=== PATIENT | female | born 1990 | race Two or more races ===

== ENCOUNTER 2016-02-21 16:58 | Emergency (ER) | payer SELFPAY ==
--- NOTE | 2016-02-21 17:34 | ER Document Report ---
ED Medical Screen (RME) - General Chief Complaint: Dizziness Stated Complaint: BREATHING AND FAINTING CONCERNS Time seen by provider: 17:31 Mode of Arrival: Ambulatory Information source: Patient Notes: 25 yo female presents to ed for dizziness, nausea, short of breath, headache, no appetite for 3 days. 8 weeks due date september 23 TRAVEL OUTSIDE OF THE [place] IN LAST 30 DAYS: No - HPI Onset: Other - 2-3 days Onset/Duration: Gradual Quality of pain: Achy Severity: Moderate Pain Level: 3 Associated Symptoms: Dizzy/lightheaded, Headache, Nausea Exacerbated by: Denies Relieved by: Denies Similar symptoms previously: Yes Recently seen / treated by doctor: Yes - Related Data Smoking: Non-smoker, Quit greater than 1 year Frequency of alcohol use: None Drug Abuse: None Allergies/Adverse Reactions: No Known Allergies Allergy (Unverified 03/13/11 20:13) Past Medical History - Immunizations Hx Diphtheria, Pertussis, Tetanus Vaccination: No - unsure Physical Exam - Vital signs Vitals: Temp Pulse Resp BP Pulse Ox 97.9 F 68 16 103/55 L 98 02/21/16 17:16 02/21/16 17:16 02/21/16 17:16 02/21/16 17:16 02/21/16 17:16 Course - Vital Signs Vital signs: Temp Pulse Resp BP Pulse Ox 97.9 F 68 16 103/55 L 98 02/21/16 17:16 02/21/16 17:16 02/21/16 17:16 02/21/16 17:16 02/21/16 17:16
[2016-02-21 17:50] LABS: ABSOLUTE LYMPHOCYTES (AUTO) 1.7 10^3/uL (0.5-4.7); ABSOLUTE MONOCYTES (AUTO) 0.4 10^3/uL (0.1-1.4); ABSOLUTE NEUT (AUTO) 6.2 10^3/uL (1.7-8.2); BASOPHILS % (AUTO) 0.3 % (0-2); EOSINOPHILS % (AUTO) 0.6 % (0-6); HEMATOCRIT 38.1 % (36.0-47.0); HEMOGLOBIN 13.2 g/dL (12.0-15.5); HGB HCT DIFFERENCE 1.5; LYMPHOCYTES % (AUTO) 20.6 % (13-45); MEAN CORPUSCULAR HEMOGLOBIN 29.2 pg (27.0-33.4); MEAN CORPUSCULAR HGB CONC 34.8 g/dL (32.0-36.0); MEAN CORPUSCULAR VOLUME 84 fl (80-97); MONOCYTES % (AUTO) 5.1 % (3-13); RED BLOOD COUNT 4.54 10^6/uL (3.72-5.28); RED CELL DISTRIBUTION WIDTH 13.4 % (11.5-14.0); SEGMENTED NEUTROPHILS % (AUTO) 73.4 % (42-78); WHITE BLOOD COUNT 8.4 10^3/uL (4.0-10.5)
[2016-02-21 18:09] LABS: ALANINE AMINOTRANSFERASE 41 U/L (9-52); ALBUMIN 3.7 g/dL (3.5-5.0); ALKALINE PHOSPHATASE 75 U/L (38-126); ANION GAP 11 (5-19); ASPARTATE AMINO TRANSFERASE 23 U/L (14-36); BILIRUBIN,TOTAL 0.4 mg/dL (0.2-1.3); BLOOD UREA NITROGEN 6 mg/dL (7-20); CALCIUM 9.1 mg/dL (8.4-10.2); CARBON DIOXIDE 25 mmol/L (22-30); CHLORIDE 103 mmol/L (98-107); CREATININE RESULT 0.59 mg/dL (0.52-1.25); GLUCOSE 74 mg/dL (75-110); POTASSIUM 4.2 mmol/L (3.6-5.0); SODIUM 138.8 mmol/L (137-145); TOTAL PROTEIN 7.2 g/dL (6.3-8.2)
[2016-02-21 18:33] LABS: APPEARANCE,URINE CLOUDY; BILIRUBIN,URINE NEGATIVE (NEGATIVE); GLUCOSE, URINE NEGATIVE (NEGATIVE); KETONES,URINE NEGATIVE (NEGATIVE); LEUKOCYTE ESTERASE,URINE TRACE (NEGATIVE); NITRITE,URINE NEGATIVE (NEGATIVE); PROTEIN,URINE NEGATIVE (NEGATIVE); URINE SPECIFIC GRAVITY 1.019; UROBILINOGEN,URINE NEGATIVE mg/dL (<2.0)
--- NOTE | 2016-02-21 21:03 | ER Document Report ---
ED Dizziness/Weakness - General Chief Complaint: Dizziness Stated Complaint: BREATHING AND FAINTING CONCERNS Mode of Arrival: Ambulatory Information source: Patient Notes: Patient is a 25-year-old female A1 who presents to the ER today for dizziness, migraine, nausea and vomiting. Patient states that for the past 2 weeks she really has not been able to eat a full meal and keep it down. She is not taking anything for nausea. She does have a history of migraines but states that the vomiting is making it worse. She states that the dizziness is random but she has not had any syncopal episodes. She has not yet seen [facility]. TRAVEL OUTSIDE OF THE [place] IN LAST 30 DAYS: No - Related Data Allergies/Adverse Reactions: No Known Allergies Allergy (Unverified 03/13/11 20:13) Past Medical History - General Information source: Patient - Social History Smoking Status: Never Smoker Frequency of alcohol use: None Drug Abuse: None Family History: Reviewed & Not Pertinent Patient has suicidal ideation: No Patient has homicidal ideation: No Past Surgical History: Reports: Hx Gynecologic Surgery - d/c x1 - Immunizations Hx Diphtheria, Pertussis, Tetanus Vaccination: No - unsure Review of Systems - Review of Systems Constitutional: No symptoms reported. denies: Chills, Fever EENT: No symptoms reported Cardiovascular: No symptoms reported Respiratory: No symptoms reported Gastrointestinal: See HPI Genitourinary: No symptoms reported Female Genitourinary: See HPI Musculoskeletal: No symptoms reported Skin: No symptoms reported Hematologic/Lymphatic: No symptoms reported Neurological/Psychological: See HPI Physical Exam - Vital signs Vitals: Temp Pulse Resp BP Pulse Ox 97.9 F 68 16 103/55 L 98 02/21/16 17:16 02/21/16 17:16 02/21/16 17:16 02/21/16 17:16 02/21/16 17:16 - Notes Notes: PHYSICAL EXAMINATION: GENERAL: Well-appearing and in no acute distress. HEAD: Atraumatic, normocephalic. EYES: Pupils equal round and reactive to light, extraocular movements intact, sclera anicteric, conjunctiva are normal. ENT: ear canals without erythema or foreign body, TMs pearly alexander with good bony landmarks, nares patent, oropharynx clear without exudates. Moist mucous membranes. NECK: Normal range of motion, supple without lymphadenopathy LUNGS: CTAB and equal. No wheezes rales or rhonchi. HEART: Regular rate and rhythm without murmurs ABDOMEN: Soft, no tenderness. No guarding, no rebound EXTREMITIES: Normal range of motion, no pitting edema. No cyanosis. NEUROLOGICAL: Cranial nerves grossly intact. Normal sensory/motor exams. PSYCH: Normal mood, normal affect. SKIN: Warm, Dry, normal turgor, no rashes or lesions noted Course - Re-evaluation Re-evalutation: 02/22/16 00:57 02/22/16 00:57 Lab work is unremarkable today with a normal white blood cell count and electrolytes, positive with an hCG of 157,000. Transvaginal ultrasound reports a 9 week and 1 day gestation with a heartbeat of 189 bpm, no evidence of abnormality, bleed, etc. Patient received IV fluids and Zofran and has been eating here in the emergency department without any nausea or vomiting. - Vital Signs Vital signs: Temp Pulse Resp BP Pulse Ox 97.9 F 68 16 103/55 L 98 02/21/16 17:16 02/21/16 17:16 02/21/16 17:16 02/21/16 17:16 02/21/16 17:16 - Laboratory Result Diagrams: 02/21/16 17:40 02/21/16 17:40 Laboratory results interpreted by me: 02/21/16 02/21/16 17:40 17:40 BUN 6 L Glucose 74 L Beta HCG, Quant 100041.00 H Ur Leukocyte Esterase TRACE H Urine Ascorbic Acid 40 H Discharge - Discharge Clinical Impression: Lightheadedness Qualifiers: Weeks of gestation: 9 weeks Qualified Code(s): Z3A.09 - 9 weeks gestation of Nausea and vomiting Qualifiers: Vomiting type: unspecified Vomiting Intractability: non-intractable Qualified Code(s): R11.2 - Nausea with vomiting, unspecified Condition: Stable Disposition: HOME, SELF-CARE Instructions: Intravenous (IV) Fluids ([facility]) Additional Instructions: Return immediately for any new or worsening symptoms. Follow up with [facility] call tomorrow to make followup appointment. Prescriptions: Ondansetron [Zofran Odt 4 mg Tablet] 1 - 2 tab PO Q4H PRN #30 tab.rapdis PRN Reason: For Nausea/Vomiting Forms: Return to Work Referrals: [facility] [Provider Group] - Follow up as needed
[2016-02-21] MEDS ORDERED: NORMAL SALINE 1000 ML 1,000 ML IV ONE (21:09)
[2016-02-21] MEDS ORDERED: ONDANSETRON HCL INJ/PF 4 MG/2 ML SDV IV ONE (21:09)
[2016-02-22 01:12] VITALS: BP 101/67
== END 2016-02-22 01:12 | disposition home or self-care (01) ==
LOC: ER 16:58
DX: O21.9 Vomiting of pregnancy, unspecified (principal); R42 Dizziness and giddiness; R51 Headache; Z3A.09 9 weeks gestation of pregnancy
CPT/HCPCS: 99284; 96361; 96374; 36415; 84702; 85025; 80053; 81001; 76817; 93976; J2405; J7030

== ENCOUNTER 2016-03-31 16:00 | Emergency (ER) | payer SELFPAY ==
[2016-03-31] MEDS ORDERED: NORMAL SALINE 1000 ML 2,000 ML IV ONE (16:50)
[2016-03-31] MEDS ORDERED: METOCLOPRAMIDE HCL 10 MG TABLET PO ONE (16:50)
--- NOTE | 2016-03-31 16:51 | ER Document Report ---
ED Medical Screen (RME) - General Chief Complaint: Nausea/Vomiting Stated Complaint: NAUSEA/VOMITING Time seen by provider: 16:48 Mode of Arrival: Ambulatory Information source: Patient Notes: 25-year-old female 15 weeks with nausea and vomiting since she found out she was in December. Can't keep anything down, feels week. No vaginal bleeding. She has some epigastric abdominal pain. Temperature was 100.2 yesterday. Still sees the health department. I have greeted and performed a rapid initial assessment of this patient. A comprehensive ED assessment, evaluation of the patient, analysis of test results , and completion of the medical decision making process will be conducted by additional ED providers. TRAVEL OUTSIDE OF THE [place] IN LAST 30 DAYS: No - Related Data Allergies/Adverse Reactions: No Known Allergies Allergy (Unverified 03/13/11 20:13) Past Medical History Past Surgical History: Reports: Hx Gynecologic Surgery - d/c x1 - Immunizations Hx Diphtheria, Pertussis, Tetanus Vaccination: No - unsure Physical Exam - Vital signs Vitals: Temp Pulse Resp BP Pulse Ox 98.1 F 83 14 109/63 98 03/31/16 16:05 03/31/16 16:05 03/31/16 16:05 03/31/16 16:05 03/31/16 16:05 Course - Vital Signs Vital signs: Temp Pulse Resp BP Pulse Ox 98.1 F 83 14 109/63 98 03/31/16 16:05 03/31/16 16:05 03/31/16 16:05 03/31/16 16:05 03/31/16 16:05
[2016-03-31 18:00] LABS: ABSOLUTE LYMPHOCYTES (AUTO) 1.6 10^3/uL (0.5-4.7); ABSOLUTE MONOCYTES (AUTO) 0.3 10^3/uL (0.1-1.4); ABSOLUTE NEUT (AUTO) 6.2 10^3/uL (1.7-8.2); BASOPHILS % (AUTO) 0.3 % (0-2); EOSINOPHILS % (AUTO) 0.3 % (0-6); HEMATOCRIT 37.2 % (36.0-47.0); HEMOGLOBIN 13.1 g/dL (12.0-15.5); HGB HCT DIFFERENCE 2.1; LYMPHOCYTES % (AUTO) 19.5 % (13-45); MEAN CORPUSCULAR HEMOGLOBIN 29.8 pg (27.0-33.4); MEAN CORPUSCULAR HGB CONC 35.3 g/dL (32.0-36.0); MEAN CORPUSCULAR VOLUME 85 fl (80-97); RED CELL DISTRIBUTION WIDTH 12.9 % (11.5-14.0); SEGMENTED NEUTROPHILS % (AUTO) 75.9 % (42-78); WHITE BLOOD COUNT 8.1 10^3/uL (4.0-10.5)
[2016-03-31 18:10] LABS: APPEARANCE,URINE SLIGHTLY-CLOUDY; BILIRUBIN,URINE NEGATIVE (NEGATIVE); GLUCOSE, URINE NEGATIVE (NEGATIVE); KETONES,URINE 80 mg/dL (NEGATIVE); LEUKOCYTE ESTERASE,URINE NEGATIVE (NEGATIVE); NITRITE,URINE NEGATIVE (NEGATIVE); PROTEIN,URINE NEGATIVE (NEGATIVE); URINE SPECIFIC GRAVITY 1.024
[2016-03-31 18:16] LABS: ALANINE AMINOTRANSFERASE 37 U/L (9-52); ALBUMIN 3.7 g/dL (3.5-5.0); ALKALINE PHOSPHATASE 77 U/L (38-126); ANION GAP 9 (5-19); ASPARTATE AMINO TRANSFERASE 23 U/L (14-36); BILIRUBIN,TOTAL 0.4 mg/dL (0.2-1.3); BLOOD UREA NITROGEN 6 mg/dL (7-20); CALCIUM 9.3 mg/dL (8.4-10.2); CARBON DIOXIDE 24 mmol/L (22-30); CHLORIDE 104 mmol/L (98-107); CREATININE RESULT 0.63 mg/dL (0.52-1.25); GLUCOSE 93 mg/dL (75-110); LIPASE 86.9 U/L (23-300); POTASSIUM 3.8 mmol/L (3.6-5.0); SODIUM 136.8 mmol/L (137-145); TOTAL PROTEIN 7.6 g/dL (6.3-8.2)
--- NOTE | 2016-03-31 18:57 | ER Document Report ---
ED GI/ - General Chief Complaint: Nausea/Vomiting Stated Complaint: NAUSEA/VOMITING Mode of Arrival: Ambulatory Notes: The patient is a 25-year-old female, 15 weeks by ultrasound, presents with 2 months of intermittent nausea and vomiting. She was seen at the health department today and told to come to the emergency room. She has had an ultrasound which showed an intrauterine fetus. She tried Zofran without much relief at home. She denies any abdominal pain, fevers, hematemesis, vaginal bleeding, diarrhea, constipation or vaginal discharge. TRAVEL OUTSIDE OF THE [place] IN LAST 30 DAYS: No - Related Data Allergies/Adverse Reactions: No Known Allergies Allergy (Unverified 03/13/11 20:13) Past Medical History - General Information source: Patient - Social History Smoking Status: Never Smoker Family History: Reviewed & Not Pertinent Patient has suicidal ideation: No Patient has homicidal ideation: No Renal/ Medical History: Denies: Hx Peritoneal Dialysis Past Surgical History: Reports: Hx Gynecologic Surgery - d/c x1 - Immunizations Hx Diphtheria, Pertussis, Tetanus Vaccination: No - unsure Review of Systems - Review of Systems Notes: REVIEW OF SYSTEMS: CONSTITUTIONAL: -fevers, -chills EENT: -eye pain, -difficulty swallowing, -nasal congestion CARDIOVASCULAR:-chest pain, -syncope. RESPIRATORY: -cough, -SOB GASTROINTESTINAL: -abdominal pain, +nausea, +vomiting, -diarrhea GENITOURINARY: -dysuria, -hematuria MUSCULOSKELETAL: -back pain, -neck pain SKIN: -rash or skin lesions. HEMATOLOGIC: -easy bruising or bleeding. LYMPHATIC: -swollen, enlarged glands. NEUROLOGICAL: -altered mental status or loss of consciousness, -headache, - neurologic symptoms PSYCHIATRIC: -anxiety, -depression. ALL OTHER SYSTEMS REVIEWED AND NEGATIVE. Physical Exam - Vital signs Vitals: Temp Pulse Resp BP Pulse Ox 98.1 F 83 14 109/63 98 03/31/16 16:05 03/31/16 16:05 03/31/16 16:05 03/31/16 16:05 03/31/16 16:05 - Notes Notes: PHYSICAL EXAMINATION: GENERAL: Well-appearing, well-nourished and in no acute distress. Eating a grilled cheese and drinking Pepsi in the emergency room. HEAD: Atraumatic, normocephalic. EYES: Pupils equal round and reactive to light, extraocular movements intact, sclera anicteric, conjunctiva are normal. ENT: nares patent, oropharynx clear without exudates. Moist mucous membranes. NECK: Normal range of motion, supple without lymphadenopathy LUNGS: Breath sounds clear to auscultation bilaterally and equal. No wheezes rales or rhonchi. HEART: Regular rate and rhythm without murmurs ABDOMEN: Soft, nontender, normoactive bowel sounds. No guarding, no rebound. No masses appreciated. EXTREMITIES: Normal range of motion, no pitting or edema. No cyanosis. NEUROLOGICAL: Cranial nerves grossly intact. Normal speech, normal gait. Normal sensory, motor, and reflex exams. PSYCH: Normal mood, normal affect. SKIN: Warm, Dry, normal turgor, no rashes or lesions noted. Course - Re-evaluation Re-evalutation: Patient feels much better after antiemetics and IV fluids. Tolerating food and drink in the ER. No abdominal pain and no vaginal bleeding. Prior ultrasound shows an intrauterine fetus. Will send home with Diclegis and follow-up with OB at health clinic. - Vital Signs Vital signs: Temp Pulse Resp BP Pulse Ox 98.1 F 63 18 103/56 L 100 03/31/16 20:25 03/31/16 20:25 03/31/16 20:25 03/31/16 20:25 03/31/16 20:25 - Laboratory Result Diagrams: 03/31/16 17:35 03/31/16 17:35 Laboratory results interpreted by me: 03/31/16 03/31/16 17:35 17:35 Sodium 136.8 L BUN 6 L Urine Ketones 80 H Urine Urobilinogen 4.0 H Urine Ascorbic Acid 40 H Discharge - Discharge Clinical Impression: Nausea and vomiting during Condition: Good Disposition: HOME, SELF-CARE Additional Instructions: VOMITING: Vomiting (or nausea without vomiting) can be caused by many other different problems. It can mean that something's wrong with the stomach, such as ulcers or inflammation or the intestinal tract, such as appendicitis. But it can also be a symptom of a problem that has nothing to do with the stomach or intestines. Vomiting is common with severe headaches, earaches, tonsillitis, and kidney infections, etc. We see it with pneumonia or heart attacks. Drugs can cause nausea and vomiting. Many abdominal problems cause vomiting; for example, gallstones, kidney stones, pancreatitis, and intestinal obstruction ( blocked bowels). In most cases, curing the vomiting depends on fixing the problem that caused it. For temporary relief, we may use an anti-nausea medicine. For home use, we can prescribe suppositories, chewable pills, pills that dissolve in the mouth, or liquid anti-nausea drugs. If the vomiting seems to be caused by a problem in the stomach, acid-suppressing drugs may be prescribed as well. It's important to avoid dehydration. Sip small amounts of clear liquids ( soft drinks, tea, broth, etc) . Try to take fluids frequently even if you are vomiting to prevent dehydration. Take increasing amounts of fluid and when liquids are being consumed successfully, advance to small amounts of bland food (toast, soups, mashed potatoes, etc.) until you are able to resume a regular diet. Avoid aspirin, tobacco, and alcohol. If the vomiting worsens, if the problem that's making you vomit worsens, or if there's evidence of bleeding in the stomach (such as black, tarry stool, or bloody or black vomit), you should return immediately. Also, return if abdominal pain worsens or becomes localized to one area or you develop high fever. Call your doctor if you aren't improved in 24 hours. DIARRHEA, NON-SPECIFIC: Diarrhea means frequent, watery stools. There are many causes. Any problem that keeps the intestinal tract from absorbing water from the stool can lead to diarrhea. A sudden new diarrhea problem is usually caused by a virus, food sensitivity, toxic bacteria, or drugs. In this case, we expect the problem to go away soon. Testing is done only if you seem seriously ill from the diarrhea. If you have chronic diarrhea, or diarrhea that keeps coming back, we need to find out why. Chronic diarrhea can be due to inflammation of the bowels such as Crohn's disease or ulcerative colitis, food sensitivity such as intolerance to lactose or wheat protein, irritable bowel syndrome, and other problems. If your diarrhea is a significant problem but it's not clear why you have it, we' ll refer you to a specialist for further testing. During an episode of diarrhea, drink small amounts (two to six ounces) of clear liquids (soft drinks, sport drinks, herb teas, broth, etc). Take fluids frequently to prevent dehydration. It's usually not a problem to take mild anti- diarrhea medication such as Kaopectate or Pepto-Bismol. As the diarrhea eases, advance to small amounts of bland food (mashed potato, toast) for 24 hours. Call the physician if blood appears in your vomit or stool, if vomiting lasts longer than 24 hours, if the abdominal pain worsens or becomes localized to one area, if you develop high fever, or if you become lightheaded and weak. VIRAL SYNDROME: The physician has diagnosed a viral infection. Viruses not only cause "colds," but can cause many different symptoms including generalized aching, fever, headache, cough, diarrhea, nausea, vomiting, and fatigue. The treatment, for the most part, is simply relief of symptoms. This means that antibiotics are usually not given. Rest, fluids, pain medications and, occasionally, medication for the specific symptoms that are most bothersome will be prescribed. Use good handwashing to avoid passing the virus to others. Shared toys should be cleaned with disinfectant. Clean the toilets, sinks, and counter surfaces in bathrooms. Launder clothing in hot water. Contact the physician if you develop any new or unusual symptoms such as severe headache, stiff neck, high fever, chest pain, productive cough, or shortness of breath. You should be rechecked if you don't see marked improvement within seven to 10 days. INTRAVENOUS (I V) FLUIDS: As part of your care today, you received intravenous (IV) fluids. IV fluids are administered to patients who are dehydrated or to those who have certain chemical (electrolyte) abnormalities that need correcting. ANTINAUSEA MEDICATION: You have been given a medication to suppress nausea and vomiting. This type of medication can be given as a shot, pill, or suppository. It will usually last for many hours. Pills and shots usually last six to eight hours. For the typical illness, only one or two doses of the medication may be necessary. Mild lightheadedness may occur. This type of medicine can cause drowsiness. Do not drive or operate dangerous machinery while under its influence. Do not mix with alcohol. See your doctor at once if you have muscle spasms or tightness, or uncontrollable motions (particularly of the neck, mouth, or jaw). Persistent vomiting or severe lightheadedness should also be evaluated by the physician. DAVID العراقيMETOCLOPRAMIDE): Reglan has been prescribed. This medicine affects the stomach and intestines. It can be used to treat nausea and vomiting, to prevent reflux of stomach acid up into the esophagus, or to increase the contractions of the stomach and intestines. It is often prescribed for esophagitis, and for paralysis of the stomach in diabetics. Reglan can cause either mild restlessness or drowsiness. You should contact the doctor at once if you become extremely restless, anxious, or cannot sleep, or if you develop uncontrollable motions of the lips, tongue, or jaw. Do not take alcohol with this medicine. Do not drive or operate machinery until you have been taking this medicine long enough to know how it affects you. Call the doctor if you develop abdominal pains, lightheadedness, black stool, or blood in the stool or vomitus. FOLLOW-UP CARE: If you have been referred to a physician for follow-up care, call the physician s office for an appointment as you were instructed or within the next two days. If you experience worsening or a significant change in your symptoms, notify the physician immediately or return to the Emergency Department at any time for re-evaluation. Prescriptions: Doxylamine/Pyridoxine HCl [Jesus Givens 10-10 mg Tablet] 1 each PO Q8H PRN #30 tablet.dr TITUS Reason:
[2016-03-31 22:33] VITALS: BP 110/70
== END 2016-03-31 22:25 | disposition home or self-care (01) ==
LOC: ER 16:00
DX: O21.9 Vomiting of pregnancy, unspecified (principal); Z3A.15 15 weeks gestation of pregnancy
CPT/HCPCS: 99283; 96360; 96361; 36415; 87086; 83690; 85025; 80053; 81001; J7030

== ENCOUNTER 2016-06-30 18:33 | Emergency (ER) | payer MEDICAID ==
[2016-06-30] MEDS ORDERED: LIDOCAINE 2% VISCOUS SOLN 20 ML UDCUP PO ONE (19:09)
[2016-06-30] MEDS ORDERED: METOCLOPRAMIDE HCL ORAL SOLN 10 MG/10 ML UDCUP PO ONE (19:09)
[2016-06-30] MEDS ORDERED: FAMOTIDINE 20 MG TABLET PO ONE (19:09)
--- NOTE | 2016-06-30 19:12 | ER Document Report ---
ED General - General Chief Complaint: Upper Abdominal Pain Stated Complaint: ABDOMINAL PAIN Time Seen by Provider: 06/30/16 18:42 Notes: Patient is a 25-year-old woman currently 27 weeks who presents with several hours of intermittent right upper abdominal pain. Does describe it as an intermittent, stabbing, severe pain that comes on suddenly and then resolves abruptly without intervention. No history of similar symptoms in the past. She does note associated burping. Admits to frequent dietary indiscretions. States she has regular bowel movements. Denies any associated dysuria, vaginal bleeding, vaginal discharge or lower abdominal pain. She has not seen her OB/ [facility] regarding today's concerns. No history of similar symptoms in the past. TRAVEL OUTSIDE OF THE [place] IN LAST 30 DAYS: No - Related Data Allergies/Adverse Reactions: No Known Allergies Allergy (Unverified 03/13/11 20:13) Past Medical History - General Information source: Patient - Social History Smoking Status: Former Smoker Chew tobacco use (# tins/day): No Frequency of alcohol use: None Drug Abuse: None Lives with: Spouse/Significant other Family History: Reviewed & Not Pertinent Renal/ Medical History: Denies: Hx Peritoneal Dialysis Past Surgical History: Reports: Hx Gynecologic Surgery - d/c x1 - Immunizations Hx Diphtheria, Pertussis, Tetanus Vaccination: No - unsure Review of Systems - Review of Systems Notes: Constitutional: Negative for fever. HENT: Negative for sore throat. Eyes: Negative for visual changes. Cardiovascular: Negative for chest pain. Respiratory: Negative for shortness of breath. Gastrointestinal: Positive for abdominal pain, negative for vomiting or diarrhea. Genitourinary: Negative for dysuria. Musculoskeletal: Negative for back pain. Skin: Negative for rash. Neurological: Negative for headaches, weakness or numbness. 10 point ROS negative except as marked above and in HPI. Physical Exam - Vital signs Vitals: Resp 19 06/30/16 18:47 Interpretation: Normal Notes: PHYSICAL EXAMINATION: GENERAL: Well-appearing, well-nourished and in no acute distress. HEAD: Atraumatic, normocephalic. EYES: Pupils equal round and reactive to light, extraocular movements intact, sclera anicteric, conjunctiva are normal. ENT: nares patent, oropharynx clear without exudates. Moist mucous membranes. NECK: Normal range of motion, supple without lymphadenopathy LUNGS: Breath sounds clear to auscultation bilaterally and equal. No wheezes rales or rhonchi. HEART: Regular rate and rhythm without murmurs ABDOMEN: Soft, gravid uterus, nontender, normoactive bowel sounds. No guarding , no rebound. No masses appreciated. EXTREMITIES: Normal range of motion, no pitting or edema. No cyanosis. NEUROLOGICAL: No focal neurological deficits. Moves all extremities spontaneously and on command. PSYCH: Normal mood, normal affect. SKIN: Warm, Dry, normal turgor, no rashes or lesions noted. Course - Re-evaluation Re-evalutation: 06/30/16 19:10 Patient presents with epigastric abdominal pain with associated reflux symptoms most consistent with likely gastritis in the setting of . Patient has no focal abdominal tenderness on examination. Right upper quadrant ultrasound does not demonstrate any evidence of acute cholecystitis or cholelithiasis the bedside. Lipase is normal. No LFT changes. I do not suspect acute cholestasis of . She has no lower abdominal tenderness to suggest an acute appendicitis. Bedside ultrasound shows active movement, cardiac activity with a heart rate of 148. No vaginal bleeding or discharge to suggest a threatened miscarriage. Based on history and exam, I do not suspect ACS, pulmonary embolus, SBO, mesenteric ischemia, acute pancreatitis, biliary pathology, or an abdominal aortic dissection. Patient has had improvement of symptoms here with a GI cocktail. At this time will discharge with return precautions and follow-up recommendations. Verbal discharge instructions given a the bedside and opportunity for questions given. Medication warnings reviewed. Patient is in agreement with this plan and has verbalized understanding of return precautions and the need for primary care follow-up in the next 24-72 hours. - Vital Signs Vital signs: Temp Pulse Resp BP Pulse Ox 97.9 F 78 19 122/72 100 06/30/16 21:26 06/30/16 21:26 06/30/16 21:26 06/30/16 21:26 06/30/16 21:26 - Laboratory Result Diagrams: 06/30/16 18:55 06/30/16 18:55 Laboratory results interpreted by me: 06/30/16 06/30/16 06/30/16 18:55 18:55 20:04 WBC 11.0 H Hct 35.8 L Absolute Neutrophils 8.3 H Potassium 3.5 L Carbon Dioxide 20 L Alkaline Phosphatase 143 H Beta HCG, Quant 3518.70 H Ur Leukocyte Esterase TRACE H - Diagnostic Test Radiology reviewed: Reports reviewed Discharge - Discharge Clinical Impression: Abdominal pain during Qualifiers: Trimester: third trimester Qualified Code(s): O26.893 - Other specified related conditions, third trimester Condition: Good Disposition: HOME, SELF-CARE Additional Instructions: Your symptoms appear to be most consistent with stomach or upper intestinal irritation. Your evaluation here today has not demonstrated an alternative cause for your symptoms. Please begin taking famotidine 40 mg in the morning and 40 mg at night. This medicine can be purchased directly [id number]. You may also take medicine such as Tums to assist with your pain. Please follow closely with your primary care doctor and/or OBGYN in the next 24-48 hours regarding today's emergency department visit. Please return immediately if you develop persistent vomiting, worsening pain, again having bloody bowel movements, develop a fever greater than 100.4F, or have any other symptoms that are worrisome to you. Referrals: ROBY GERMAIN MD [Primary Care Provider] - Follow up as needed
[2016-06-30 19:15] LABS: ABSOLUTE EOSINOPHILS # (AUTO) 0.1 10^3/uL (0.0-0.6); ABSOLUTE LYMPHOCYTES (AUTO) 2.2 10^3/uL (0.5-4.7); ABSOLUTE MONOCYTES (AUTO) 0.5 10^3/uL (0.1-1.4); ABSOLUTE NEUT (AUTO) 8.3 10^3/uL (1.7-8.2); BASOPHILS % (AUTO) 0.2 % (0-2); EOSINOPHILS % (AUTO) 0.6 % (0-6); HEMATOCRIT 35.8 % (36.0-47.0); HEMOGLOBIN 12.6 g/dL (12.0-15.5); LYMPHOCYTES % (AUTO) 19.6 % (13-45); MEAN CORPUSCULAR HEMOGLOBIN 29.4 pg (27.0-33.4); MEAN CORPUSCULAR HGB CONC 35.1 g/dL (32.0-36.0); MEAN CORPUSCULAR VOLUME 84 fl (80-97); MONOCYTES % (AUTO) 4.8 % (3-13); RED BLOOD COUNT 4.27 10^6/uL (3.72-5.28); RED CELL DISTRIBUTION WIDTH 12.7 % (11.5-14.0); SEGMENTED NEUTROPHILS % (AUTO) 74.8 % (42-78)
[2016-06-30 19:33] LABS: ALANINE AMINOTRANSFERASE 23 U/L (9-52); ALBUMIN 3.5 g/dL (3.5-5.0); ALKALINE PHOSPHATASE 143 U/L (38-126); ANION GAP 12 (5-19); ASPARTATE AMINO TRANSFERASE 21 U/L (14-36); BILIRUBIN,DIRECT 0.3 mg/dL (0.0-0.4); BILIRUBIN,TOTAL 0.5 mg/dL (0.2-1.3); BLOOD UREA NITROGEN 8 mg/dL (7-20); CALCIUM 9.7 mg/dL (8.4-10.2); CARBON DIOXIDE 20 mmol/L (22-30); CHLORIDE 106 mmol/L (98-107); GLUCOSE 96 mg/dL (75-110); LIPASE 88.7 U/L (23-300); POTASSIUM 3.5 mmol/L (3.6-5.0); SODIUM 138.1 mmol/L (137-145); TOTAL PROTEIN 7.4 g/dL (6.3-8.2)
[2016-06-30] MEDS ORDERED: MORPHINE SULFATE 10 MG/ML INJ IV PRN (19:49)
[2016-06-30 20:33] LABS: AMORPHOUS SEDIMENT,URINE TRACE /HPF; APPEARANCE,URINE TURBID; BILIRUBIN,URINE NEGATIVE (NEGATIVE); GLUCOSE, URINE NEGATIVE (NEGATIVE); KETONES,URINE NEGATIVE (NEGATIVE); LEUKOCYTE ESTERASE,URINE TRACE (NEGATIVE); NITRITE,URINE NEGATIVE (NEGATIVE); PROTEIN,URINE NEGATIVE (NEGATIVE); URINE SPECIFIC GRAVITY 1.011; UROBILINOGEN,URINE NEGATIVE mg/dL (<2.0)
[2016-06-30] MEDS ORDERED: POLYETHYLENE GLYCOL 3350 POWDER 17 GM/1 PACKET PO ONE (21:07)
[2016-06-30 21:27] VITALS: BP 122/72
== END 2016-06-30 21:26 | disposition home or self-care (01) ==
LOC: ER 18:33
DX: O26.892 Other specified pregnancy related conditions, second trimester (principal); R10.10 Upper abdominal pain, unspecified; Z3A.27 27 weeks gestation of pregnancy; Z87.891 Personal history of nicotine dependence
CPT/HCPCS: 99284; 96374; 36415; 84702; 83690; 85025; 80053; 81001; 76705; J3490 ×4; J2270

== ENCOUNTER 2016-08-11 18:55 | Emergency (ER) | payer MEDICAID ==
[2016-08-11 19:05] VITALS: BP 111/58
== END 2016-08-11 23:09 | disposition left against medical advice (07) ==
LOC: ER 18:55
DX: Z53.21 Procedure and treatment not carried out due to patient leaving prior to being seen by health care provider (principal)

== ENCOUNTER 2016-08-12 17:40 | Outpatient (CLI) | payer MEDICAID | END 2016-08-12 19:38 | disposition home or self-care (01) | LOC: LC 17:40 | PROVIDERS: ATTEND Student in an Organized Health Care Education/Training Program | DX: O76 Abnormality in fetal heart rate and rhythm complicating labor and delivery (principal) | CPT/HCPCS: 59025 ==

== ENCOUNTER 2016-08-13 02:15 | Emergency (ER) | payer MEDICAID ==
[2016-08-13 02:32] VITALS: BP 118/82
[2016-08-13] MEDS ORDERED: PENICILLIN V POTASSIUM 500 MG TABLET PO ONE (02:43)
[2016-08-13] MEDS ORDERED: HYDROCODONE/ACETAMINOPHEN 5-325 MG 6 TAB/DSPK PO PRN (02:44)
[2016-08-13] MEDS ORDERED: MORPHINE SULFATE IR 15 MG TABLET PO ONE (02:46)
--- NOTE | 2016-08-13 02:49 | ER Document Report ---
ED General - General Chief Complaint: Toothache Stated Complaint: TOOTH PAIN Time Seen by Provider: 08/13/16 02:37 Notes: Patient is a 25-year-old female currently 35 weeks who presents with acute onset of severe pain to the right side of her face. Patient states that she sustained a dental fracture approximately 1 week ago and has had progressively worsening pain since that time which became much worse today. States she has been trying to get into her dentist but they are declined to evaluate her due to her advanced . Patient reports a severe, constant , throbbing pain to the affected areas. States eating or drinking worsens the pain. Nothing improves the pain. Any difficulty breathing or swallowing. TRAVEL OUTSIDE OF THE [place] IN LAST 30 DAYS: No - Related Data Allergies/Adverse Reactions: No Known Allergies Allergy (Verified 08/12/16 17:52) Past Medical History - General Information source: Patient - Social History Smoking Status: Never Smoker Frequency of alcohol use: None Drug Abuse: None Lives with: Spouse/Significant other Family History: Reviewed & Not Pertinent Patient has suicidal ideation: No Patient has homicidal ideation: No Renal/ Medical History: Denies: Hx Peritoneal Dialysis Past Surgical History: Reports: Hx Gynecologic Surgery - d/c x1 - Immunizations Hx Diphtheria, Pertussis, Tetanus Vaccination: No - unsure Review of Systems - Review of Systems Notes: Constitutional: Negative for fever. HENT: Positive for dental pain Eyes: Negative for visual changes. Cardiovascular: Negative for chest pain. Respiratory: Negative for shortness of breath. Gastrointestinal: Negative for abdominal pain, vomiting or diarrhea. Genitourinary: Negative for dysuria. Musculoskeletal: Negative for back pain. Skin: Negative for rash. Neurological: Negative for headaches, weakness or numbness. 10 point ROS negative except as marked above and in HPI. Physical Exam - Vital signs Vitals: Temp Pulse Resp BP Pulse Ox 98.2 F 73 18 118/82 99 08/13/16 02:28 08/13/16 02:28 08/13/16 02:28 08/13/16 02:08/13/16 02:28 Interpretation: Normal Notes: PHYSICAL EXAMINATION: GENERAL: Well-appearing, well-nourished and in no acute distress. HEAD: Atraumatic, normocephalic. EYES: sclera anicteric, conjunctiva are normal. ENT: Moist mucous membranes. Poor dentition throughout, there is a fracture of tooth #30 as well as tooth #2 without any associated induration, purulent expression or mucosal edema or swelling. Airway is widely patent. NECK: Normal range of motion LUNGS: Normal work of breathing HEART: 2+ radial pulses bilaterally EXTREMITIES: no pitting or edema. No cyanosis. NEUROLOGICAL: No focal neurological deficits. Moves all extremities spontaneously and on command. PSYCH: Normal mood, normal affect. SKIN: Warm, Dry, normal turgor, no rashes or lesions noted. Course - Re-evaluation Re-evalutation: 08/13/16 02:44 Presentation of 2 fractured teeth, tooth 30 and 3. Airway is patent. Vitals within normal limits. Patient is able swallow without any difficulty. There is no significant facial swelling. Patient will be started on antibiotics and a limited number of pain medications. I've instructed to follow-up with dentistry as earliest ability for definitive management. Return precautions and follow-up recommendations have been discussed at length. - Vital Signs Vital signs: Temp Pulse Resp BP Pulse Ox 98.2 F 73 18 118/82 99 08/13/16 02:28 08/13/16 02:28 08/13/16 02:28 08/13/16 02:28 08/13/16 02:28 Discharge - Discharge Clinical Impression: Pain, dental Condition: Good Disposition: HOME, SELF-CARE Additional Instructions: You have been seen for dental pain. It is very important that you follow-up with a dentist for definitive care. Please return if you develop fever greater than 101, swelling in your face, vomiting, difficulty breathing or swallowing, or any other symptoms that are concerning to you. Prescriptions: Penicillin V Potassium [Penicillin Vk 500 mg Tablet] 500 mg PO BID #20 tablet
== END 2016-08-13 02:59 | disposition home or self-care (01) ==
LOC: ER 02:15
DX: O26.93 Pregnancy related conditions, unspecified, third trimester (principal); K08.9 Disorder of teeth and supporting structures, unspecified; Z3A.35 35 weeks gestation of pregnancy
CPT/HCPCS: 99282; J3490

== ENCOUNTER 2016-09-04 15:02 | Outpatient (CLI) | payer MEDICAID ==
--- NOTE | 2016-09-04 15:11 | Non Stress Test Report ---
Non Stress Test Datetime Report Generated by CPN: 09/04/2016 15:11 DEMOGRAPHIC Test Number: 1 EGA NST: 34.0 INDICATION Indication for Study: Decreased Movement MONITORING Monitor Explained: Monitor Explained; Test Explained; Patient Verbalized Understanding Time on Monitor: 08/12/2016 18:02 Time off Monitor: 08/12/2016 19:35 NST Duration: 93 NST INTERVENTIONS NST Interventions: PO Hydration Physician Notified NST: Dr. Cole _ Abdon Wells, [facility] BABY A: [id number] BABY A Movement : Present Contraction Frequency : none FHR Baseline : 150 Accelerations : 15X15 Decelerations : None Variability : Moderate 6-25bpm NST Review: Meets Criteria for Reactive NST NST Review and Verified By : Yolanda Higuera RN NST Results: Reactive NST REPORT Report Trigger: Send Report
--- NOTE | 2016-09-04 15:37 | Non Stress Test Report ---
Non Stress Test Datetime Report Generated by CPN: 09/04/2016 15:36 DEMOGRAPHIC EGA NST: 37.2 INDICATION Indication for Study: Other Indication for Study (NST) Other: 3 week growth lag MONITORING Monitor Explained: Monitor Explained; Test Explained; Patient Verbalized Understanding Time on Monitor: 09/04/2016 15:13 Time off Monitor: 09/04/2016 15:33 NST Duration: 20 NST INTERVENTIONS NST Interventions: PO Hydration Physician Notified NST: Dr Cole, P Wells CNM BABY A Movement : Present Contraction Frequency : none FHR Baseline : 145 Accelerations : 15X15 Decelerations : None Variability : Moderate 6-25bpm NST Review: Meets Criteria for Reactive NST NST Review and Verified By : D Bellavance RNC NST Results: Reactive NST REPORT Report Trigger: Send Report
== END 2016-09-04 15:38 | disposition home or self-care (01) ==
LOC: LC 15:02
PROVIDERS: ATTEND Student in an Organized Health Care Education/Training Program
DX: O36.8130 Decreased fetal movements, third trimester, not applicable or unspecified (principal); Z3A.37 37 weeks gestation of pregnancy
CPT/HCPCS: 59025

== ENCOUNTER 2016-09-08 16:36 | Outpatient (CLI) | payer MEDICAID ==
--- NOTE | 2016-09-08 17:14 | Non Stress Test Report ---
Non Stress Test Datetime Report Generated by CPN: 09/08/2016 17:14 DEMOGRAPHIC EGA NST: 37.6 INDICATION Indication for Study: Ordered by Provider Indication for Study (NST) Other: nst sent from office MONITORING Monitor Explained: Monitor Explained; Test Explained; Patient Verbalized Understanding Time on Monitor: 09/08/2016 16:45 Time off Monitor: 09/08/2016 17:12 NST Duration: 27 NST INTERVENTIONS NST Interventions: PO Hydration; Reposition Patient Physician Notified NST: Dr. Lim BABY A: [id number] Movement : Present Contraction Frequency : irreg FHR Baseline : 140 Accelerations : 15X15 Decelerations : None Variability : Moderate 6-25bpm NST Review: Meets Criteria for Reactive NST NST Review and Verified By : Yolanda Espinoza RN NST Results: Reactive NST REPORT Report Trigger: Send Report
== END 2016-09-08 17:21 | disposition home or self-care (01) ==
LOC: LC 16:36
PROVIDERS: ATTEND Specialist
DX: Z34.83 Encounter for supervision of other normal pregnancy, third trimester (principal)
CPT/HCPCS: 59025

== ENCOUNTER 2016-09-11 08:49 | Outpatient (CLI) | payer MEDICAID | END 2016-09-11 09:40 | disposition home or self-care (01) | LOC: LC 08:49 | PROVIDERS: ATTEND Obstetrics & Gynecology | PROC: 4A1HXCZ Monitoring of Products of Conception, Cardiac Rate, External Approach (ICD-10-PCS; principal; 2016-09-11) | DX: Z34.93 Encounter for supervision of normal pregnancy, unspecified, third trimester (principal) | CPT/HCPCS: 59025 ==

== ENCOUNTER 2016-09-15 12:00 | Outpatient (CLI) | payer MEDICAID ==
--- NOTE | 2016-09-15 12:10 | Non Stress Test Report ---
Non Stress Test Datetime Report Generated by CPN: 09/15/2016 12:10 DEMOGRAPHIC EGA NST: 38.2 INDICATION Indication for Study (NST) Other: Repeat MONITORING Monitor Explained: Monitor Explained; Test Explained; Patient Verbalized Understanding Time on Monitor: 09/11/2016 09:00 Time off Monitor: 09/11/2016 09:38 NST Duration: 38 NST INTERVENTIONS NST Interventions: PO Hydration; Reposition Patient Physician Notified NST: J Borja CNM BABY A: [id number] BABY A Movement : Present Contraction Frequency : occasional FHR Baseline : 140 Accelerations : 15X15 Decelerations : None Variability : Moderate 6-25bpm NST Review: Meets Criteria for Reactive NST NST Review and Verified By : Lela Fairchild RNC NST Results: Reactive NST REPORT Report Trigger: Send Report
[2016-09-15] MEDS ORDERED: RINGERS SOLUTION,LACTATED 500 ML IV ONE (13:06)
--- NOTE | 2016-09-15 15:33 | RADIOLOGY REPORT (SQ) ---
EXAM DESCRIPTION: U/S PROFILE W/O STRESS COMPLETED DATE/TIME: 09/15/2016 3:24 pm REASON FOR STUDY: non-reactive NST- SMALL FOR DATES COMPARISON: None. TECHNIQUE: Limited kyle-scale realtime and static images of the fetus to measure specified parameter s. LIMITATIONS: None. FINDINGS: HEART RATE: 153 beats per minute. GABBY: 8.5 cm. POSTURE AND TONE: 2 points. MOVEMENT: 2 points. BREATHING MOVEMENT: 2 points. QUALITATIVE GABBY: 2 points. OTHER: No other significant finding. IMPRESSION: BIOPHYSICAL PROFILE: 09/23. Trimester of : Third - 28 weeks to delivery COMMENT: BREATHING MOVEMENTS: 2 POINTS: PRESENT 0 POINTS: ABSENT MOTION: 2 POINTS: PRESENT 0 POINTS: ABSENT TONE: 2 POINTS: PRESENT 0 POINTS: ABSENT AMNIOTIC FLUID VOLUME: 2 POINTS: LARGEST POCKET GREATER THAN 2 CM DEPTH. 0 POINTS: NO POCKET OF 2 CM. TECHNICAL DOCUMENTATION: JOB ID: [id number] [employer]- All Rights Reserved
--- NOTE | 2016-09-15 15:39 | RADIOLOGY REPORT (SQ) ---
EXAM DESCRIPTION: U/S OB LIMITED COMPLETED DATE/TIME: 09/15/2016 3:28 pm REASON FOR STUDY: ESTIMATED WEIGHT- SMALL FOR DATES-38.6 WEEKS COMPARISON: None. TECHNIQUE: Limited transabdominal grayscale ultrasound for evaluation of specific requested obstetri shabbir parameters. LIMITATIONS: None. FINDINGS: EGA: 37 weeks. ALEKSANDRA: 10/06/2016. EFW: 3,378 g. PERCENTILE: 50%. CERVICAL LENGTH: Not adequately visualized. GABBY: 8.5 cm. FHR: 152 beats per minute. PRESENTATION: Cephalic. OTHER: No other significant findings. IMPRESSION: LIMITED OBSTETRICAL ULTRASOUND WITH MEASURED PARAMETERS DELINEATED ABOVE. Trimester of : Third trimester - 28 weeks to delivery. TECHNICAL DOCUMENTATION: JOB ID: [id number] [employer]- All Rights Reserved
--- NOTE | 2016-09-15 19:09 | Non Stress Test Report ---
Non Stress Test Datetime Report Generated by CPN: 09/15/2016 19:09 DEMOGRAPHIC EGA NST: 38.6 INDICATION Indication for Study: Ordered by Provider VITAL SIGNS Temperature - NST: 98.5 Pulse - NST: 89 RESP - NST: 16 NBPSYS NST: 113 NBPDIA NST: 71 MONITORING Monitor Explained: Monitor Explained; Test Explained; Patient Verbalized Understanding Time on Monitor: 09/15/2016 12:57 Time off Monitor: 09/15/2016 15:50 NST Duration: 173 NST INTERVENTIONS NST Interventions: PO Hydration; IV Fluids; For Biophysical Profile Physician Notified NST: Dr. Cole BABY A Movement : Present Contraction Frequency : 9-10 FHR Baseline : 140 Accelerations : 15X15 Decelerations : None Variability : Moderate 6-25bpm NST Review: Meets Criteria for Reactive NST NST Review and Verified By : SANDOR poe NST Results: Reactive NST COMMENTS NST Comments: Dr. Cole reviewed strip, ordered to d/c patient home. Pt questions answered, ambulated off unit with no complaints. NST REPORT Report Trigger: Send Report
== END 2016-09-15 16:11 | disposition home or self-care (01) ==
LOC: LC 12:00
PROVIDERS: ATTEND Student in an Organized Health Care Education/Training Program
PROC: 4A1HXCZ Monitoring of Products of Conception, Cardiac Rate, External Approach (ICD-10-PCS; principal; 2016-09-15)
DX: O36.5930 Maternal care for other known or suspected poor fetal growth, third trimester, not applicable or unspecified (principal); Z3A.38 38 weeks gestation of pregnancy
CPT/HCPCS: 76815; 76819

== ENCOUNTER 2016-09-17 04:16 | Outpatient (CLI) | payer MEDICAID ==
[2016-09-17 04:45] LABS: APPEARANCE,URINE SLIGHTLY-CLOUDY; BILIRUBIN,URINE NEGATIVE (NEGATIVE); GLUCOSE, URINE NEGATIVE (NEGATIVE); KETONES,URINE NEGATIVE (NEGATIVE); LEUKOCYTE ESTERASE,URINE LARGE (NEGATIVE); NITRITE,URINE NEGATIVE (NEGATIVE); PROTEIN,URINE NEGATIVE (NEGATIVE); URINE SPECIFIC GRAVITY 1.015; UROBILINOGEN,URINE NEGATIVE mg/dL (<2.0)
[2016-09-17 05:03] LABS: URINE BARBITURATES SCREEN NEGATIVE; URINE METHADONE SCREEN NEGATIVE; URINE OPIATES LOW NEGATIVE; URINE PHENCYCLIDINE SCREEN NEGATIVE
[2016-09-17] MEDS ORDERED: FAMOTIDINE 20 MG TABLET PO ONE (05:13)
[2016-09-17] MEDS ORDERED: MAG HYDROX/AL HYDROX/SIMETH SUSP 30 ML UDCUP PO ONE (05:14)
[2016-09-17] MEDS ORDERED: LIDOCAINE 2% VISCOUS SOLN 20 ML UDCUP PO ONE (05:15)
[2016-09-17] MEDS ORDERED: METOCLOPRAMIDE HCL ORAL SOLN 10 MG/10 ML UDCUP PO ONE (05:15)
--- NOTE | 2016-09-17 05:23 | Non Stress Test Report ---
Non Stress Test Datetime Report Generated by CPN: 09/17/2016 05:23 DEMOGRAPHIC Test Number: 5 EGA NST: 39.1 INDICATION Indication for Study: Ordered by Provider Indication for Study (NST) Other: LC URINE RESULTS Urine Protein, NST: Negative Urine Ketones - NST: Negative Urine Glucose - NST: Negative Urine Blood - NST: Negative MONITORING Monitor Explained: Monitor Explained; Test Explained; Patient Verbalized Understanding Time on Monitor: 09/17/2016 04:32 Time off Monitor: 09/17/2016 05:11 NST Duration: 39 NST INTERVENTIONS NST Interventions: PO Hydration; Reposition Patient Physician Notified NST: Meeks BABY A: [id number] BABY A Movement : Present Contraction Frequency : occasional FHR Baseline : 130 Accelerations : 15X15 Decelerations : None Variability : Moderate 6-25bpm NST Review: Meets Criteria for Reactive NST NST Review and Verified By : Makenzie Charles RN NSKatiana Results: Reactive NST REPORT Report Trigger: Send Report
[2016-09-17] MEDS ORDERED: MAG HYDROX/AL HYDROX/SIMETH SUSP 30 ML UDCUP ONE (05:26)
[2016-09-17] MEDS ORDERED: FAMOTIDINE 20 MG TABLET ONE (05:26)
== END 2016-09-17 06:55 | disposition home or self-care (01) ==
LOC: LC 04:16
PROVIDERS: ATTEND Obstetrics & Gynecology
PROC: 4A1HXCZ Monitoring of Products of Conception, Cardiac Rate, External Approach (ICD-10-PCS; principal; 2016-09-17)
DX: O47.1 False labor at or after 37 completed weeks of gestation (principal); O99.613 Diseases of the digestive system complicating pregnancy, third trimester; K21.9 Gastro-esophageal reflux disease without esophagitis; Z3A.39 39 weeks gestation of pregnancy
CPT/HCPCS: 59025; 81005; 80307; J3490 ×4

== ENCOUNTER 2016-09-17 13:32 | Outpatient (CLI) | payer MEDICAID ==
[2016-09-17 14:34] LABS: APPEARANCE,URINE SLIGHTLY-CLOUDY; BILIRUBIN,URINE NEGATIVE (NEGATIVE); GLUCOSE, URINE NEGATIVE (NEGATIVE); KETONES,URINE NEGATIVE (NEGATIVE); LEUKOCYTE ESTERASE,URINE TRACE (NEGATIVE); NITRITE,URINE NEGATIVE (NEGATIVE); PROTEIN,URINE NEGATIVE (NEGATIVE); URINE SPECIFIC GRAVITY 1.013; UROBILINOGEN,URINE NEGATIVE mg/dL (<2.0)
[2016-09-17] MEDS ORDERED: DICYCLOMINE HCL 20 MG TABLET PO ONE (15:00)
[2016-09-17 15:03] LABS: ABSOLUTE LYMPHOCYTES (AUTO) 1.5 10^3/uL (0.5-4.7); ABSOLUTE MONOCYTES (AUTO) 0.4 10^3/uL (0.1-1.4); BASOPHILS % (AUTO) 0.4 % (0-2); EOSINOPHILS % (AUTO) 0.2 % (0-6); HEMATOCRIT 34.5 % (36.0-47.0); HEMOGLOBIN 12.1 g/dL (12.0-15.5); HGB HCT DIFFERENCE 1.8; LYMPHOCYTES % (AUTO) 15.2 % (13-45); MEAN CORPUSCULAR HEMOGLOBIN 28.7 pg (27.0-33.4); MEAN CORPUSCULAR HGB CONC 35.1 g/dL (32.0-36.0); MEAN CORPUSCULAR VOLUME 82 fl (80-97); MONOCYTES % (AUTO) 4.4 % (3-13); RED BLOOD COUNT 4.22 10^6/uL (3.72-5.28); RED CELL DISTRIBUTION WIDTH 13.7 % (11.5-14.0); SEGMENTED NEUTROPHILS % (AUTO) 79.8 % (42-78)
[2016-09-17 15:13] LABS: URINE BARBITURATES SCREEN NEGATIVE; URINE METHADONE SCREEN NEGATIVE; URINE OPIATES LOW NEGATIVE; URINE PHENCYCLIDINE SCREEN NEGATIVE
[2016-09-17] MEDS ORDERED: RINGERS SOLUTION,LACTATED 1,000 ML IV PRN ×2 (15:14→16:15)
[2016-09-17 15:21] LABS: ALANINE AMINOTRANSFERASE 28 U/L (9-52); ALBUMIN 3.3 g/dL (3.5-5.0); ANION GAP 12 (5-19); ASPARTATE AMINO TRANSFERASE 15 U/L (14-36); BILIRUBIN,DIRECT 0.3 mg/dL (0.0-0.4); BILIRUBIN,TOTAL 0.4 mg/dL (0.2-1.3); BLOOD UREA NITROGEN 6 mg/dL (7-20); CALCIUM 8.6 mg/dL (8.4-10.2); CARBON DIOXIDE 20 mmol/L (22-30); CHLORIDE 102 mmol/L (98-107); GLUCOSE 85 mg/dL (75-110); LIPASE 41.2 U/L (23-300); NEONATAL BILIRUBIN RESULT 0.1 mg/dL (0.1-1.1); POTASSIUM 4.3 mmol/L (3.6-5.0); SODIUM 134.4 mmol/L (137-145); TOTAL PROTEIN 6.6 g/dL (6.3-8.2)
[2016-09-17 15:22] LABS: ALKALINE PHOSPHATASE 222 U/L (38-126)
[2016-09-17 15:26] LABS: AMYLASE < 30 U/L (30-110)
[2016-09-17] MEDS ORDERED: ONDANSETRON HCL INJ/PF 4 MG/2 ML SDV ONE (16:06)
[2016-09-17] MEDS ORDERED: ONDANSETRON HCL INJ/PF 4 MG/2 ML SDV IV ONE (17:00)
--- NOTE | 2016-09-17 17:41 | Non Stress Test Report ---
Non Stress Test Datetime Report Generated by CPN: 09/17/2016 17:41 DEMOGRAPHIC EGA NST: 39.1 INDICATION Indication for Study: Other Indication for Study (NST) Other: pain in upper abdomen VITAL SIGNS Temperature - NST: 97.9 Pulse - NST: 66 RESP - NST: 18 NBPSYS NST: 120 NBPDIA NST: 84 MONITORING Monitor Explained: Monitor Explained; Test Explained; Patient Verbalized Understanding Time on Monitor: 09/17/2016 13:55 Time off Monitor: 09/17/2016 17:19 NST Duration: 204 NST INTERVENTIONS NST Interventions: PO Hydration; IV Fluids; Reposition Patient Physician Notified NST: Dr. Flaco BABY A: [id number] BABY A Movement : Present; Increased Contraction Frequency : occassional FHR Baseline : 130 Accelerations : 15X15 Decelerations : Late Variability : Moderate 6-25bpm NST Review: Meets Criteria for Reactive NST NST Review and Verified By : Adriana Thomas RNC NST Results: Reactive NST REPORT Report Trigger: Send Report
== END 2016-09-17 17:39 | disposition home or self-care (01) ==
LOC: LC 13:32
PROVIDERS: ATTEND Specialist
PROC: 4A1HXCZ Monitoring of Products of Conception, Cardiac Rate, External Approach (ICD-10-PCS; principal; 2016-09-17)
DX: O76 Abnormality in fetal heart rate and rhythm complicating labor and delivery (principal); O47.1 False labor at or after 37 completed weeks of gestation; R10.9 Unspecified abdominal pain; Z3A.39 39 weeks gestation of pregnancy
CPT/HCPCS: 59025; 36415; 82150; 83690; 85025; 81005; 80053; 80307; J3490; J2405

== ENCOUNTER 2016-09-21 07:54 | Inpatient (IN) | payer MEDICAID ==
[2016-09-21] MEDS ORDERED: PENICILLIN G-K 5 MILLION UNIT VIAL ONE ×3 (08:07→16:39)
[2016-09-21 08:43] LABS: APPEARANCE,URINE SLIGHTLY-CLOUDY; BILIRUBIN,URINE NEGATIVE (NEGATIVE); GLUCOSE, URINE NEGATIVE (NEGATIVE); KETONES,URINE NEGATIVE (NEGATIVE); LEUKOCYTE ESTERASE,URINE MODERATE (NEGATIVE); NITRITE,URINE NEGATIVE (NEGATIVE); PROTEIN,URINE NEGATIVE (NEGATIVE); URINE SPECIFIC GRAVITY 1.017
[2016-09-21] MEDS ORDERED: RINGERS SOLUTION,LACTATED 1,000 ML IV PRN (08:56)
[2016-09-21 09:00] LABS: URINE BARBITURATES SCREEN NEGATIVE; URINE METHADONE SCREEN NEGATIVE; URINE OPIATES LOW NEGATIVE; URINE PHENCYCLIDINE SCREEN NEGATIVE
[2016-09-21] MEDS ORDERED: ACETAMINOPHEN WITH CODEINE #3 TABLET ONE (09:01)
[2016-09-21 12:02] LABS: ABSOLUTE LYMPHOCYTES (AUTO) 1.6 10^3/uL (0.5-4.7); ABSOLUTE MONOCYTES (AUTO) 0.5 10^3/uL (0.1-1.4); ABSOLUTE NEUT (AUTO) 10.7 10^3/uL (1.7-8.2); BASOPHILS % (AUTO) 0.4 % (0-2); EOSINOPHILS % (AUTO) 0.1 % (0-6); HEMATOCRIT 34.8 % (36.0-47.0); HEMOGLOBIN 11.8 g/dL (12.0-15.5); HGB HCT DIFFERENCE 0.6; LYMPHOCYTES % (AUTO) 12.7 % (13-45); MEAN CORPUSCULAR HEMOGLOBIN 28.1 pg (27.0-33.4); MEAN CORPUSCULAR VOLUME 83 fl (80-97); MONOCYTES % (AUTO) 3.6 % (3-13); RED BLOOD COUNT 4.21 10^6/uL (3.72-5.28); SEGMENTED NEUTROPHILS % (AUTO) 83.2 % (42-78); WHITE BLOOD COUNT 12.8 10^3/uL (4.0-10.5)
[2016-09-21] MEDS ORDERED: FENTANYL/BUPIVACAINE/NS/PF 100 ML EPI PRN (12:09)
[2016-09-21] MEDS ORDERED: BUPIVACAINE HCL 0.25 % INJ/PF (2.5 MG/1 ML) 30 ML VIAL INFIL ONE (12:09)
[2016-09-21] MEDS ORDERED: BENZOIN/ALOE VERA/STORAX/TOLU TINCTURE 60 ML TP PRN (12:09)
[2016-09-21] MEDS ORDERED: FENTANYL CITRATE INJ/PF 100 MCG/2 ML AMPUL ONE (12:58)
[2016-09-21] MEDS ORDERED: FENTANYL/BUPIVACAINE/NS/PF 200 MCG/100 ML RTUINJ EPI ONE (12:59)
[2016-09-21] MEDS ORDERED: BUPIVACAINE HCL 0.25 % INJ/PF (2.5 MG/1 ML) 30 ML VIAL ONE (12:59)
[2016-09-21] MEDS ORDERED: PHENYLEPHRINE HCL INJ/PF 10 MG/1 ML SDV ONE (12:59)
[2016-09-21] MEDS ORDERED: EPHEDRINE SULFATE INJ 50 MG/1 ML AMPULE ONE (12:59)
[2016-09-21] MEDS ORDERED: OXYTOCIN/NORMAL SALINE 1,000 ML IV PRN (14:38)
[2016-09-21] MEDS ORDERED: OXYTOCIN/NORMAL SALINE 20 UNIT/1,000 ML RTUINJ ONE (14:38)
--- NOTE | 2016-09-21 14:44 | L&D Progress Notes ---
PROGRESS NOTES Datetime Report Generated by CPN: 09/21/2016 14:44 PROGRESS NOTE Impression: Normal Progression of Labor; Rupture of Membranes Procedures: Artificial ROM; Sterile Vag Exam Plan: Continue Present Management; Augmentation; Anticipate Vaginal Delivery Informed Consent Obtained: Vaginal Delivery; Risks, Benefits and Alternatives Discussed Vital Signs : Reviewed Comment: Admitted for early active labor. pt desires epidural. Epidural placed and pt comfortable at this time. Cvx exam done and AROM performed. contractions are spacing out. will initiate pitocin for augmentation of labor. Pelvis adequate for AMY. VAGINAL EXAM Dilatation: 5 Effacement: 80 Station: -1 MEMBRANES Membranes: Ruptured Amniotic Fluid Color: Clear FETUS A FHR - Baseline: 135 Monitoring: External US Variability: Moderate 6-25bpm Accelerations: 15X15 Decelerations: None FHR Category: Category I Presentation: Vertex SIGNATURE SIGNATURE: [id number];[id number] SIGNATURE: [id number] SIGNATURE: [id number] SIGNATURE: [id number] SIGNATURE: ,[id number] SIGNATURE: 14,[id number] SIGNATURE: 14,[id number] SIGNATURE: 14,[id number] Signature: with User ID: [email or web address]
[2016-09-21] MEDS ORDERED: PENICILLIN G POTASSIUM 2,500,000 UNIT in DEXTROSE 5%-WATER 50 ML IV SCH (16:06)
[2016-09-21] MEDS ORDERED: MISOPROSTOL 0.2 MG TABLET ONE (18:17)
[2016-09-21] MEDS ORDERED: CEFAZOLIN 2 GM/D5W RTU 2 GM/50 ML RTUPB IV ONE (18:33)
[2016-09-21] MEDS ORDERED: BENZOCAINE/MENTHOL AEROSOL SPRAY 56 ML TOP PRN (18:49)
[2016-09-21] MEDS ORDERED: PROMETHAZINE HCL INJ 25 MG/1 ML VIAL IV PRN (18:49)
[2016-09-21] MEDS ORDERED: ACETAMINOPHEN 650 MG SUPP.RECT PR PRN (18:49)
[2016-09-21] MEDS ORDERED: DIPH/PERTUSS(ACELL)/TETANUS VAC/PF 0.5 ML SYR (>=10YO) IM PRN (18:49)
[2016-09-21] MEDS ORDERED: OXYTOCIN/NORMAL SALINE 20 UNIT/1,000 ML RTUINJ IV PRN (18:49)
[2016-09-21] MEDS ORDERED: DIPHENHYDRAMINE HCL 25 MG CAPSULE PO PRN (18:49)
[2016-09-21] MEDS ORDERED: MEASLES,MUMPS&RUBELLA VACC/PF 0.5 ML VIAL SUBCUT PRN (18:49)
[2016-09-21] MEDS ORDERED: PROMETHAZINE HCL 25 MG TABLET PO PRN (18:49)
[2016-09-21] MEDS ORDERED: ZOLPIDEM TARTRATE 5 MG TABLET PO PRN (18:49)
[2016-09-21] MEDS ORDERED: MAGNESIUM HYDROXIDE SUSP 30 ML UDCUP PO PRN (18:49)
[2016-09-21] MEDS ORDERED: ACETAMINOPHEN WITH CODEINE #3 TABLET PO PRN (18:49)
[2016-09-21] MEDS ORDERED: PSEUDOEPHEDRINE HCL 30 MG TABLET PO PRN (18:49)
[2016-09-21] MEDS ORDERED: PROMETHAZINE HCL 25 MG SUPP.RECT PR PRN (18:49)
[2016-09-21] MEDS ORDERED: NA PHOS,M-B/NA PHOS,DI-BA (ADULT) 133 ML ENEMA PR PRN (18:49)
[2016-09-21] MEDS ORDERED: GLYCERIN/WITCH HAZEL LEAF 1 EACH MED..PAD TP PRN (18:49)
[2016-09-21] MEDS ORDERED: DIBUCAINE 1% OINTMENT 28 GM TP PRN (18:49)
--- NOTE | 2016-09-21 20:04 | Delivery Summary ---
Del Sum A-C Datetime Report Generated by CPN: 09/21/2016 20:04 DELIVERY PERSONNEL DELIVERY PERSONNEL: [id number];[id number] Delivery Doctor:: Sarita Cole MD Labor and Delivery Nurse:: Etelvina Mata RNlaw instructor Nurse:: Eboni Tyson RN Nursery Nurse:: Kevon Muñoz RN Nursery Nurse:: Nara Pettit RN Clothing Man/INTERNAL CONTROL MANAGER: Lydia Garcia, OPERATIONS LEADER MATERNAL INFORMATION Delivery Anesthesia: Epidural Medications After Delivery: Pitocin Bolus-Please Comment; Other-Please Comment Meds After Delivery Comment: Pitocin 20 U in 1000 mL NS Cytotec 1000 mcg AR Estimated Blood Loss (ml): 250 Maternal Complications: None Provider Comments: VFI delivered in FERNANDO presentation. No nuchal cord. Shoulders and body delivered without difficulty. Cord doubly clamped and cut and infant to maternal abd. Placenta delivered intact spontaneously. FF at U. 800mcg cytotec given AR due to h/o hemorrhage. Superficial periurethral laceration repaired. ML vaginal pocket noted robably from prior delivery repaired - rectal exam revealed very thin epithelial layer but no e/o fistula prior to repair. Apgars 8/9. Weight pending. Mother and baby stable upon provider leaving the room. LABOR SUMMARY EDC: 09/23/2016 00:00 No. Babies in Womb: 1 Attempted: No Labor Anesthesia: Epidural LABOR INFORMATION Reason for Induction: Not Applicable Onset of Labor: 09/21/2016 11:48 Complete Dilatation: 09/21/2016 18:15 Oxytocin: N/A Group B Beta Strep: Positive Antibiotics # of Doses: 3 Antibiotics Time of Last Dose: 1700 Name of Antibiotic Given: PCN Steroids Given: None Reason Steroids Not Administered: Not Applicable MEMBRANES Membranes Rupture Method: Artificial Rupture of Membranes: 09/21/2016 14:31 Length of Rupture (hr): 3.92 Amniotic Fluid Color: Clear Amniotic Fluid Amount: Moderate STAGES OF LABOR Stage 1 hr: 6 Stage 1 min: 27 Stage 2 hr: 0 Stage 2 min: 11 Stage 3 hr: 0 Stage 3 min: 3 Total Time in Labor hr: 6 Total Time in Labor min: 41 VAGINAL DELIVERY Episiotomy: Right Mediolateral Laceration Extension: First Degree Laceration Type: Periurethral Laceration Repair: Yes Laceration Repair Note: Superficial Right periurethral laceration repaired in usual fashion. No perineal lacerations Sponge Count Correct: N/A Sharps Count Correct: Yes CSECTION DELIVERY Primary Indication: N/A Secondary Indication: N/A CSection Incidence: N/A Labor: N/A Elective: N/A CSection Incision: N/A BABY A INFORMATION Delivery Date/Time: 09/21/2016 18:26 Method of Delivery: Vaginal Born in Route : No : N/A Forceps: N/A Vacuum Extraction: N/A Shoulder Dystocia : No PRESENTATION/POSITION BABY A Presentation: Cephalic Cephalic Presentation: Vertex Vertex Position: Left Occipital Anterior Breech Presentation: N/A PLACENTA INFORMATION BABY A Placenta Delivery Time : 09/21/2016 18:29 Placenta Method of Delivery: Spontaneous Placenta Status: Delivered SCORES BABY A Heart Rate 1 min: >100 bpm Resp Effort 1 min: Good Cry Reflex Irritability 1 min: Cough or Sneeze or Pulls Away Muscle Tone 1 min: Active Motion Color 1 min: Blue/Pale Resuscitation Effort 1 min: Tactile Stimulation SCORE 1 MIN: 8 Heart Rate 5 min: >100 bpm Resp Effort 5 min: Good Cry Reflex Irritability 5 min: Cough or Sneeze or Pulls Away Muscle Tone 5 min: Active Motion Color 5 min: Body Accident, Extremities Blue Resuscitation Effort 5 min: Tactile Stimulation SCORE 5 MIN: 9 INFORMATION BABY A Gestational Age at Delivery: 39.5 Gestational Status: Full Term- 39- 40.6 Weeks Outcome : Liveborn Condition : Stable Sex: Female IDENTIFICATION BABY A Infant Verification Date/Time: 09/21/2016 18:51 ID Band Number: [id number] Mother's Name Verified: Yes RN Verifying Infant: Etelvina Mata RN/ Eboni Jah RN WEIGHT/LENGTH BABY A Infant Birthweight (gm): 3175 Weight (lb): 7 Infant Weight (oz): 0 Infant Length (in): 20.00 Length (cm): 50.80 CORD INFORMATION BABY A No. Cord Vessels: 3 Nuchal Cord : N/A Cord Blood Taken: Yes-For Storage (Mom's Blood type +) Infant Suction: Mouth; Nose ASSESSMENT BABY A Infant Complications: None Physical Findings at Delivery: Within Normal Limits Infant Respirations: Appears Normal Skin to Skin: Yes Business Reporter/ALS Called : No Infant Care By: Kevon Muñoz Transferred To: Remains with Mother BABY B INFORMATION : N/A SIGNATURES Signature: with User ID: [email or web address]
--- NOTE | 2016-09-21 20:51 | Admission Physical ---
Datetime Report Generated by CPN: 09/21/2016 20:51 CURRENT ADMISSION Chief Complaint: Uterine Contractions Indication for Induction: Not Applicable Admit Plan: Admit to Unit; Initiate Labor Protocol ALLERGIES Medication Allergies: No Medication Allergies: No Known Allergies (09/17/2016) Medication Allergies: No Known Allergies (09/15/2016) Medication Allergies: No Known Allergies (09/11/2016) Medication Allergies: No Known Allergies (08/12/2016) Medication Allergies: No Known Allergies (08/11/2016) Latex: No Latex Allergies Food Allergies: N/A Environmental Allergies: N/A OBSTETRICAL HISTORY EDC: 09/23/2016 00:00 : 2 Para: 1 Term: 1 : 0 SAB: 0 IAB: 0 Ectopic: 0 Livin Cesareans: 0 VBACs: 0 Multiple Births: 0 Gestational Diabetes: No Rh Sensitization: No Incompetent Cervix: No BIANCA: No Infertility: No ART Treatment: No Uterine Anomaly: No IUGR: No Hx Previous C/S: No Macrosomia: No Hx Loss/Stillborn: No PIH: Yes Hx : No Placenta Previa/Abruption: No Depression/PP Depression: No PTL/PROM: No Post Hemorrhage: Yes Current Procedures: Ultrasound; NST Obstetrical History Comments: G1: 41 week , pre-eclampsia (not induced) clots and blood transfusion after delivery 2010 G2: current SEE RECORDS Alcohol: No Marijuana : No Cocaine: No Other Illicit Drugs: No Cigarettes: Never Smoker. [id number] MEDICAL HISTORY Diabetes: No Blood Transfusion: Yes Pulmonary Disease (Asthma, TB): No Breast Disease: No Hypertension: No Manager Employment Surgery: No Heart Disease: No Hosp/Surgery: Yes Autoimmune Disorder: No Anesthetic Complications: No Kidney Disease: Yes Abnormal Pap Smear: No Neuro/Epilepsy: No Psychiatric Disorders: No Other Medical Diseases: Yes Hepatitis/Liver Disease: No Significant Family History: No Varicosities/Phlebitis: No Trauma/Violence : No Thyroid Dysfunction: No Medical History Comments: childbirth, tooth removal 2016, history of kidney stones and UTI, blood transfusion 2010 after childbirth, pt states "i was diagnosed with gallbladder issues" INFECTIOUS HISTORY Gonorrhea: No Genital Herpes: No Chlamydia: Yes Tuberculosis: No Syphilis: No Hepatitis: No HIV/AIDS Exposure: No Rash or Viral Illness: No HPV: No Infectious History Comments: Chlamydia 20yo, 03/04/2016 negative DONNIE - treated BV treated with Flagyl 02/28/2016 PHYSICAL EXAM General: Normal HEENT: Normal Neurologic: Normal Thyroid: Normal Heart: Normal Lungs: Normal Breast: Deferred Back: Normal Abdomen: Normal Genitourinary Exam: Normal Extremities: Normal DTRs: Normal Pelvic Type: Adequate Vital Signs: Reviewed VAGINAL EXAM Dilatation: 5 Effacement: 80 Station: -1 MEMBRANES Membranes: Ruptured Amniotic Fluid Color: Clear FETUS A EGA: 39.5 Monitoring: External US FHR- Baseline: 135 Variability: Moderate 6-25bpm Accelerations: 15X15 Decelerations: None Presentation: Vertex Admit Comment: 25yo +5ega presents for uterine ctx. Cvx was 1cm upon presentation then changed to 2cm in 2 hours then in 1.5 hours changed to 4/80/-2. GBS positive - PCN for GBS prophy. She desires epidural. Pelvis proven to 6#1oz. BPD/HC lag on US. H/o preE. H/o chlamydia during with good DONNIE. normal GABBY 8.77cm. CAT I FHR monitor. EFW appro 7-8#. Pelvis adequate for AMY. PLANS FOR LABOR AND DELIVERY Labor and Delivery: None Pain Management: Epidural Feeding Preference: Breast Benefit of Breast Feed Discussed: Yes Circumcision: N/A INFORMED CONSENT Informed Consent Obtained: Vaginal Delivery; Risks, Benefits and Alternatives Discussed Signature: with User ID: [email or web address]
[2016-09-21] MEDS: IBUPROFEN 800 MG TABLET PO SCH (22:22)
[2016-09-21] MEDS: FAMOTIDINE 20 MG TABLET PO SCH (22:23)
[2016-09-22] MEDS: ACETAMINOPHEN WITH CODEINE #3 TABLET PO PRN ×3 (02:56→17:18)
[2016-09-22] MEDS: IBUPROFEN 800 MG TABLET PO SCH ×3 (06:20→21:49)
[2016-09-22 07:53] LABS: HEMOGLOBIN 10.6 g/dL (12.0-15.5); HGB HCT DIFFERENCE 0.8; MEAN CORPUSCULAR HEMOGLOBIN 28.4 pg (27.0-33.4); MEAN CORPUSCULAR HGB CONC 34.1 g/dL (32.0-36.0); MEAN CORPUSCULAR VOLUME 83 fl (80-97); RED BLOOD COUNT 3.72 10^6/uL (3.72-5.28); RED CELL DISTRIBUTION WIDTH 13.9 % (11.5-14.0)
[2016-09-22] MEDS: FERROUS SULFATE 325 MG TABLET PO SCH ×2 (09:26→17:17)
[2016-09-22] MEDS: DOCUSATE SODIUM 100 MG CAPSULE PO SCH ×2 (09:27→17:18)
[2016-09-22] MEDS: PRENATAL VITAMIN W-O CA NO5/FE FUMARATE/FA CAPSULE PO SCH (09:28)
[2016-09-22] MEDS: SENNOSIDES/DOCUSATE 8.6-50 MG 1 EACH TABLET PO SCH (09:28)
[2016-09-22] MEDS: FAMOTIDINE 20 MG TABLET PO SCH ×2 (09:31→21:49)
--- NOTE | 2016-09-22 10:52 | PDOC PROGRESS REPORT ---
Subjective-OB Subjective: Post Delivery Day: 1 25 year old. Denies any needs at this time, lochia is stable, pain well controlled, voiding without difficulty. Physical Exam (OB) Vital Signs: Temp Pulse Resp BP Pulse Ox 98.0 F 69 16 123/85 100 09/22/16 07:59 09/22/16 07:59 09/22/16 07:59 09/22/16 07:59 09/22/16 07:59 Intake & Output 09/21/16 09/22/16 09/23/16 06:59 06:59 06:59 Weight 81.9 kg - PIH/Pre-Eclampsia DTR's: 2 + Clonus: Negative Headache: Absent Epigastric Pain: No Visual Changes: No - Lochia Lochia Amount: Moderate 25-50 ml Lochia Color: Rubra/Red - Abdomen Description: Tender, Round Hernia Present: No Fundal Description: Firm, Midline Fundal Height: u/u - u/2 Objective-Diagnostic Laboratory: 09/22/16 07:16 09/21/16 09/21/16 09/22/16 11:45 11:45 07:16 WBC 12.8 H 11.0 H RBC 4.21 3.72 Hgb 11.8 L 10.6 L Hct 34.8 L 31.0 L MCV 83 83 MCH 28.1 28.4 MCHC 34.0 34.1 RDW 14.0 13.9 Plt Count 276 249 Seg Neutrophils % 83.2 H Lymphocytes % 12.7 L Monocytes % 3.6 Eosinophils % 0.1 Basophils % 0.4 Absolute Neutrophils 10.7 H Absolute Lymphocytes 1.6 Absolute Monocytes 0.5 Absolute Eosinophils 0.0 Absolute Basophils 0.0 Blood Type B POSITIVE Antibody Screen NEGATIVE Assessment and Plan(PN) - Assessment and Plan (1) Vaginal delivery Is this a current diagnosis for this admission?: YesPlan: routine pp care. - Time Spent with Patient Time with patient: Less than 15 minutes Critical Time spent with patient: Less than 15 minutes Medications reviewed and adjusted accordingly: Yes - Disposition Anticipated Discharge: Home Within: within 24 hours
[2016-09-23] MEDS: ACETAMINOPHEN WITH CODEINE #3 TABLET PO PRN ×2 (05:07→10:43)
[2016-09-23] MEDS: IBUPROFEN 800 MG TABLET PO SCH ×2 (05:08→12:59)
[2016-09-23 08:56] VITALS: BP 112/83
[2016-09-23] MEDS: PRENATAL VITAMIN W-O CA NO5/FE FUMARATE/FA CAPSULE PO SCH (09:28)
[2016-09-23] MEDS: DOCUSATE SODIUM 100 MG CAPSULE PO SCH ×2 (09:29→17:58)
[2016-09-23] MEDS: SENNOSIDES/DOCUSATE 8.6-50 MG 1 EACH TABLET PO SCH (09:29)
[2016-09-23] MEDS: FERROUS SULFATE 325 MG TABLET PO SCH ×2 (09:29→17:58)
[2016-09-23] MEDS: FAMOTIDINE 20 MG TABLET PO SCH (09:29)
--- NOTE | 2016-09-23 12:14 | PDOC DISCHARGE SUMMARY ---
Final Diagnosis Discharge Date: 09/23/16 - Final Diagnosis (1) Acute blood loss anemia Is this a current diagnosis for this admission?: Yes (2) Vaginal delivery Is this a current diagnosis for this admission?: Yes Discharge Data - Discharge Medication Home Medications: Docusate Sodium [Colace 100 mg Capsule] 100 mg PO BID #60 capsule 09/23/16 Ferrous Sulfate [Feosol 325 mg Tablet] 325 mg PO BID #60 tablet 09/23/16 Ibuprofen [Motrin 800 mg Tablet] 800 mg PO Q8HP PRN #30 tablet 09/23/16 Reason(s) for Admission: Onset of Labor Procedures: NST, Ultrasound Intrapartum Procedure(s): Spontaneous Vaginal Delivery Complication(s): Laceration-Vaginal, Laceration-Periurethral Laceration-Degree: 1st - Diagnosis Test Laboratory: Temp Pulse Resp BP Pulse Ox 98.2 F 82 16 112/83 100 09/23/16 08:20 09/23/16 08:20 09/23/16 08:20 09/23/16 08:20 09/23/16 08:20 09/21/16 09/21/16 09/22/16 08:00 11:45 07:16 RBC 4.21 3.72 Hgb 11.8 L 10.6 L Hct 34.8 L 31.0 L Urine Opiates Screen NEGATIVE - Discharge information/Instructions Discharge Activity: Activity As Tolerated, Balance Activity w/Rest, No Lifting Over 10 Pounds, No Lifting/Push/Pulling, Pelvic Rest, Slowly Increase Activity, No tub bath Discharge Diet: As Tolerated, Regular Disposition: HOME, SELF-CARE Follow up with: [facility] in: 4, Weeks
== END 2016-09-23 20:50 | disposition home or self-care (01) | DRG 775 ==
LOC: LC 07:54 → LR 11:52 → 2S 20:40
PROVIDERS: ADMIT Student in an Organized Health Care Education/Training Program; ATTEND Student in an Organized Health Care Education/Training Program
PROC: 10E0XZZ Delivery of Products of Conception, External Approach (ICD-10-PCS; principal; 2016-09-21)
PROC: 0UQMXZZ Repair Vulva, External Approach (ICD-10-PCS; 2016-09-21)
PROC: 0W8NXZZ Division of Female Perineum, External Approach (ICD-10-PCS; 2016-09-21)
PROC: 10907ZC Drainage of Amniotic Fluid, Therapeutic from Products of Conception, Via Natural or Artificial Opening (ICD-10-PCS; 2016-09-21)
PROC: 4A1HXCZ Monitoring of Products of Conception, Cardiac Rate, External Approach (ICD-10-PCS; 2016-09-21)
DX: O99.824 Streptococcus B carrier state complicating childbirth (principal); D62 Acute posthemorrhagic anemia; O71.82 Other specified trauma to perineum and vulva; O99.02 Anemia complicating childbirth; Z3A.39 39 weeks gestation of pregnancy; Z37.0 Single live birth
CPT/HCPCS: 36415; 80307; 81005; 85025; 85027; 86592; 86850; 86900; 86901; 87086; 88307; 94760; J0690; J2370; J2540; J2590; J3010; J3490

== ENCOUNTER 2016-10-27 12:12 | Emergency (ER) | payer MEDICAID ==
--- NOTE | 2016-10-27 13:08 | ER Document Report ---
ED Medical Screen (RME) - General Chief Complaint: Vaginal Bleeding Stated Complaint: VAGINAL BLEEDING Time Seen by Provider: 10/27/16 12:31 Mode of Arrival: Ambulatory Information source: Patient TRAVEL OUTSIDE OF THE [place] IN LAST 30 DAYS: No - HPI Patient complains to provider of: Heavy bleeding, 6 weeks Notes: 10/27/16 13:07 Patient is a 25-year-old female who is approximately 6 weeks from a normal vaginal delivery, presenting today complaining of vaginal bleeding that has continued, she continues to pass large clots, have cramping and has developed chills and fever as well, she also complains of dysuria - Related Data Allergies/Adverse Reactions: No Known Allergies Allergy (Verified 10/27/16 12:19) Past Medical History Renal/ Medical History: Denies: Hx Peritoneal Dialysis Past Surgical History: Reports: Hx Gynecologic Surgery - d/c x1 - Immunizations Hx Diphtheria, Pertussis, Tetanus Vaccination: No - unsure Physical Exam - Vital signs Vitals: Temp Pulse Resp BP Pulse Ox 97.8 F 68 16 100/58 L 99 10/27/16 12:17 10/27/16 12:17 10/27/16 12:17 10/27/16 12:17 10/27/16 12:17 Course - Vital Signs Vital signs: Temp Pulse Resp BP Pulse Ox 97.8 F 68 16 100/58 L 99 10/27/16 12:17 10/27/16 12:17 10/27/16 12:17 10/27/16 12:17 10/27/16 12:17
[2016-10-27 13:57] LABS: APPEARANCE,URINE CLEAR; BILIRUBIN,URINE NEGATIVE (NEGATIVE); GLUCOSE, URINE NEGATIVE (NEGATIVE); KETONES,URINE NEGATIVE (NEGATIVE); LEUKOCYTE ESTERASE,URINE NEGATIVE (NEGATIVE); NITRITE,URINE NEGATIVE (NEGATIVE); PROTEIN,URINE NEGATIVE (NEGATIVE); URINE SPECIFIC GRAVITY 1.018; UROBILINOGEN,URINE NEGATIVE mg/dL (<2.0)
[2016-10-27 13:58] LABS: ABSOLUTE EOSINOPHILS # (AUTO) 0.1 10^3/uL (0.0-0.6); ABSOLUTE LYMPHOCYTES (AUTO) 1.9 10^3/uL (0.5-4.7); ABSOLUTE MONOCYTES (AUTO) 0.3 10^3/uL (0.1-1.4); ABSOLUTE NEUT (AUTO) 4.6 10^3/uL (1.7-8.2); BASOPHILS % (AUTO) 0.1 % (0-2); EOSINOPHILS % (AUTO) 1.2 % (0-6); HEMATOCRIT 38.6 % (36.0-47.0); HEMOGLOBIN 12.6 g/dL (12.0-15.5); HGB HCT DIFFERENCE -0.8; LYMPHOCYTES % (AUTO) 27.7 % (13-45); MEAN CORPUSCULAR HEMOGLOBIN 27.4 pg (27.0-33.4); MEAN CORPUSCULAR HGB CONC 32.7 g/dL (32.0-36.0); MEAN CORPUSCULAR VOLUME 84 fl (80-97); MONOCYTES % (AUTO) 4.6 % (3-13); RED CELL DISTRIBUTION WIDTH 14.3 % (11.5-14.0); SEGMENTED NEUTROPHILS % (AUTO) 66.4 % (42-78); WHITE BLOOD COUNT 6.9 10^3/uL (4.0-10.5)
[2016-10-27 14:17] LABS: ANION GAP 12 (5-19); BLOOD UREA NITROGEN 12 mg/dL (7-20); CALCIUM 9.8 mg/dL (8.4-10.2); CARBON DIOXIDE 26 mmol/L (22-30); CHLORIDE 104 mmol/L (98-107); GLUCOSE 85 mg/dL (75-110); POTASSIUM 4.6 mmol/L (3.6-5.0)
--- NOTE | 2016-10-27 14:45 | ER Document Report ---
ED GI/ - General Chief Complaint: Vaginal Bleeding Stated Complaint: VAGINAL BLEEDING Time Seen by Provider: 10/27/16 12:31 Mode of Arrival: Ambulatory Notes: 25 yo female c/o heavy vaginal bleeding for less than a week. Prior had light bleeding-red. Never stopped after she had the baby september 21, . Perineal suture after episiotomy. OBGYN appt this morning started on OC but hasn"t started them. Nikki Borja told her that it was normal. No testing or pelvic done. Wanted to make sure nothing was wrong. Some cramping. Abstinant since delivery. No hx of t\\yroid problems. TRAVEL OUTSIDE OF THE [place] IN LAST 30 DAYS: No - Related Data Allergies/Adverse Reactions: No Known Allergies Allergy (Verified 10/27/16 12:19) Past Medical History - General Information source: Patient - Social History Smoking Status: Never Smoker Chew tobacco use (# tins/day): No Frequency of alcohol use: None Drug Abuse: None Family History: Reviewed & Not Pertinent - Medical History Medical History: Negative Renal/ Medical History: Denies: Hx Peritoneal Dialysis Past Surgical History: Reports: Hx Gynecologic Surgery - d/c x1 - Immunizations Hx Diphtheria, Pertussis, Tetanus Vaccination: No - unsure Review of Systems - Review of Systems Constitutional: No symptoms reported EENT: No symptoms reported Cardiovascular: No symptoms reported Respiratory: No symptoms reported Gastrointestinal: No symptoms reported Genitourinary: No symptoms reported Female Genitourinary: See HPI Musculoskeletal: No symptoms reported Skin: No symptoms reported Hematologic/Lymphatic: No symptoms reported Neurological/Psychological: No symptoms reported Physical Exam - Vital signs Vitals: Temp Pulse Resp BP Pulse Ox 97.8 F 68 16 100/58 L 99 10/27/16 12:17 10/27/16 12:17 10/27/16 12:17 10/27/16 12:17 10/27/16 12:17 Interpretation: Normal - General General appearance: Appears well, Alert - HEENT Head: Normocephalic, Atraumatic Eyes: Normal Conjunctiva: Normal Pupils: PERRL Neck: Supple. No: Lymphadenopathy, Thyromegally - Respiratory Respiratory status: No respiratory distress Chest status: Nontender Breath sounds: Normal Chest palpation: Normal - Cardiovascular Rhythm: Regular Heart sounds: Normal auscultation Murmur: No - Abdominal Inspection: Normal Distension: No distension Bowel sounds: Normal Tenderness: Nontender. No: Tender Organomegaly: No organomegaly - Back Back: Normal, Nontender. No: CVA tenderness - Extremities General upper extremity: Normal inspection, Nontender, Normal color, Normal ROM , Normal temperature General lower extremity: Normal inspection, Nontender, Normal color, Normal ROM , Normal temperature, Normal weight bearing. No: Thee's sign - Neurological Neuro grossly intact: Yes Cognition: Normal Orientation: AAOx4 Javad Coma Scale Eye Opening: Spontaneous Javad Coma Scale Verbal: Oriented [place] Coma Scale Motor: Obeys Commands [place] Coma Scale Total: 15 Speech: Normal Motor strength normal: LUE, RUE, LLE, RLE Sensory: Normal - Psychological Associated symptoms: Normal affect, Normal mood - Skin Skin Temperature: Warm Skin Moisture: Dry Skin Color: Normal Skin irregularity: negative: Rash Course - Re-evaluation Re-evalutation: 10/27/16 15:22 US negative, stripe normal. - Vital Signs Vital signs: Temp Pulse Resp BP Pulse Ox 97.8 F 64 16 105/69 98 10/27/16 12:17 10/27/16 15:55 10/27/16 15:55 10/27/16 15:55 10/27/16 15:55 - Laboratory Result Diagrams: 10/27/16 13:20 10/27/16 13:20 Laboratory results interpreted by me: 10/27/16 10/27/16 13:20 13:20 RDW 14.3 H Urine Blood MODERATE H Discharge - Discharge Clinical Impression: Vaginal bleeding Condition: Good Disposition: HOME, SELF-CARE Instructions: Vaginal Bleeding ([facility]) Additional Instructions: see obgyn for follow up start the birthcontrol pills this afternoon that Nikki Borja ordered for you to er any concerns Please complete the patient satisfaction survey if you get one, and return it.. If you do not receive a survey, then you can go to the [facility] website, [email or web address] and place your comments about your very good care. Thank you very much. It was a pleasure being your medical provider today. Referrals: CRISTA VALENCIA MD [ACTIVE STAFF] - Follow up as needed
--- NOTE | 2016-10-27 16:03 | RADIOLOGY REPORT (SQ) ---
EXAM DESCRIPTION: U/S NON OB PEL W/DOPPLER COMPLETED DATE/TIME: 10/27/2016 3:52 pm REASON FOR STUDY: Heavy bleeding, 6 weeks COMPARISON: None. TECHNIQUE: Dynamic and static grayscale images acquired of the pelvis via transabdominal approach an d recorded on PACS. Additional selected color Doppler and spectral images recorded. LIMITATIONS: None. FINDINGS: UTERUS: Contour normal. No mass. Uterus is 9 x 6 x 5 cm in size. ENDOMETRIAL STRIPE: No focal or generalized thickening. No masses. 8 mm in thickness CERVIX: No nabothian cysts. Cervix closed, 2.5 cm in length RIGHT OVARY: No abnormal masses. Right ovary 3 x 2.5 x 1.7 cm in size RIGHT OVARY DOPPLER: Normal arterial vascular flow without evidence for torsion. LEFT OVARY: No abnormal masses. Left ovary 3.3 x 2.6 x 2.2 cm in size LEFT OVARY DOPPLER: Normal arterial vascular flow without evidence for torsion. FREE FLUID: None noted. OTHER: No other significant finding. IMPRESSION: NORMAL PELVIC ULTRASOUND BY TRANSABDOMINAL TECHNIQUE. TECHNICAL DOCUMENTATION: JOB ID: [id number]- All Rights Reserved
[2016-10-27 16:07] VITALS: BP 105/69
== END 2016-10-27 15:55 | disposition home or self-care (01) ==
LOC: ER 12:12
DX: N93.9 Abnormal uterine and vaginal bleeding, unspecified (principal)
CPT/HCPCS: 36415; 76856; 80048; 81001; 84702; 85025; 93976; 99284

== ENCOUNTER 2018-07-04 21:29 | Emergency (ER) | payer SELFPAY ==
[2018-07-04] MEDS ORDERED: IBUPROFEN 800 MG TABLET PO ONE (23:54)
[2018-07-05 00:42] LABS: APPEARANCE,URINE CLEAR; BILIRUBIN,URINE NEGATIVE (NEGATIVE); COLOR,URINE YELLOW; GLUCOSE, URINE NEGATIVE (NEGATIVE); KETONES,URINE TRACE mg/dL (NEGATIVE); LEUKOCYTE ESTERASE,URINE NEGATIVE (NEGATIVE); NITRITE,URINE NEGATIVE (NEGATIVE); PROTEIN,URINE NEGATIVE (NEGATIVE); URINE SPECIFIC GRAVITY 1.016; UROBILINOGEN,URINE NEGATIVE mg/dL (<2.0)
--- NOTE | 2018-07-05 00:43 | ER Document Report ---
ED ENT - General Chief Complaint: Sore Throat Stated Complaint: CHILLS,FEVER,BODY ACHES,SORE THROAT Time Seen by Provider: 07/04/18 23:40 Mode of Arrival: Ambulatory Information source: Patient Notes: 27-year-old female presented to ED from fever chills sore muscle sore throat vomiting headache and runny nose cough congestion. She states she took 975 mg of Tylenol around 2 PM she is been sick for 2 weeks off and on. When she came into the emergency room they did a temperature of 100-1.1 and she did not take any medication since 930 when this was taken and when I took her vital signs at 1152 her temperature was 99.3 with a pulse of 102 and a sat of 100%. Patient is alert oriented respirations regular and unlabored speaking in full sentences throat was red and swollen I have sent a strep test and a urine specimen. Patient will be treated with ibuprofen and will follow up test results. Patient is not vomiting at this time and is drinking water. TRAVEL OUTSIDE OF THE [place] IN LAST 30 DAYS: No - HPI Patient complains to provider of: Nose problem, Throat problem Onset: Other - 2 weeks Onset/Duration: Intermittent Severity: Moderate Pain Level: 4 Context: Recent Illness Location of pain: Sinus, Throat, Other - States she has a headache runny nose congestion throwing up sore throat fever and chills Associated symptoms: Chills, Congestion, Cough, Fever, Runny nose, Sinus pain, Sore throat, Other - Body aches Similar symptoms previously: Yes Recently seen / treated by doctor: No - Related Data Allergies/Adverse Reactions: No Known Allergies Allergy (Verified 10/27/16 12:19) Past Medical History - General Information source: Patient - Social History Smoking Status: Former Smoker Cigarette use (# per day): No Frequency of alcohol use: Social Drug Abuse: None 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 Lives with: Alone Family History: Reviewed & Not Pertinent Patient has suicidal ideation: No Patient has homicidal ideation: No - Past Medical History Cardiac Medical History: Reports: None Pulmonary Medical History: Reports: None EENT Medical History: Reports: None Neurological Medical History: Reports: None Endocrine Medical History: Reports: None Renal/ Medical History: Reports: None Malignancy Medical History: Reports: None GI Medical History: Reports: None Musculoskeletal Medical History: Reports None Skin Medical History: Reports None Psychiatric Medical History: Reports: None Traumatic Medical History: Reports: None Infectious Medical History: Reports: None Past Surgical History: Reports: Hx Gynecologic Surgery - d/c x1 - Immunizations Hx Diphtheria, Pertussis, Tetanus Vaccination: No - unsure Review of Systems - Review of Systems Constitutional: Chills, Fever, Recent illness EENT: Nose congestion, Nose discharge, Sinus pressure, Sinus discharge, Throat pain Cardiovascular: No symptoms reported Respiratory: No symptoms reported Gastrointestinal: Nausea, Vomiting Genitourinary: No symptoms reported Female Genitourinary: No symptoms reported Musculoskeletal: Muscle pain, Muscle stiffness Skin: No symptoms reported Hematologic/Lymphatic: No symptoms reported Neurological/Psychological: Headaches -: Yes All other systems reviewed and negative Physical Exam - Vital signs Vitals: Temp Pulse Resp BP Pulse Ox 101.1 F H 112 H 22 H 115/74 99 07/04/18 21:51 07/04/18 21:51 07/04/18 21:51 07/04/18 21:51 07/04/18 21:51 Interpretation: Tachycardic - 102. No: Tachypneic - 18, Febrile - 99.3 - General General appearance: Appears well, Alert - HEENT Head: Normocephalic, Atraumatic Eyes: Normal Pupils: PERRL Ears: Normal External canal: Normal Tympanic membrane: Normal Sinus: Normal Nasal: Purulent discharge, Swelling Mouth/Lips: Normal Mucous membranes: Normal Pharynx: Erythema, Exudate, Post nasal drainage, Tonsillar hypertrophy Neck: Normal - Respiratory Respiratory status: No respiratory distress Chest status: Nontender Breath sounds: Nonproductive cough Chest palpation: Normal - Cardiovascular Rhythm: Regular Heart sounds: Normal auscultation Murmur: No - Abdominal Inspection: Normal Distension: No distension Bowel sounds: Normal Tenderness: Nontender Organomegaly: No organomegaly - Back Back: Normal, Nontender - Extremities General upper extremity: Normal inspection, Nontender, Normal color, Normal ROM, Normal temperature General lower extremity: Normal inspection, Nontender, Normal color, Normal ROM, Normal temperature, Normal weight bearing. No: Thee's sign - Neurological Neuro grossly intact: Yes Cognition: Normal Orientation: AAOx4 [place] Coma Scale Eye Opening: Spontaneous [place] Coma Scale Verbal: Oriented [place] Coma Scale Motor: Obeys Commands Javad Coma Scale Total: 15 Speech: Normal Motor strength normal: LUE, RUE, LLE, RLE Sensory: Normal - Psychological Associated symptoms: Normal affect, Normal mood - Skin Skin Temperature: Warm Skin Moisture: Dry Skin Color: Normal Course - Re-evaluation Re-evalutation: 07/05/18 02:20 Strep test was positive. Patient was treated with penicillin G and ibuprofen. Patient stated she felt much better before discharge after receiving her ibuprofen. Urine was negative. Written report of strep and urine given to patient for follow-up with primary care doctor. - Vital Signs Vital signs: Temp Pulse Resp BP Pulse Ox 98.4 F 91 19 109/75 98 07/05/18 01:59 07/05/18 01:59 07/05/18 01:59 07/05/18 01:59 07/05/18 01:59 - Laboratory Laboratory results interpreted by me: 07/05/18 00:04 Urine Ketones TRACE H Discharge - Discharge Clinical Impression: Strep pharyngitis Condition: Stable Disposition: HOME, SELF-CARE Instructions: Family Physicians / Practices Additional Instructions: STREP THROAT: Your sore throat is due to the streptococcus germ (strep throat). Strep throat usually makes you feel quite ill with fever and aches, headache, swollen sore throat, and tender bumps under the angles of the jaw. Strep throat requires antibiotic treatment. Although the sore throat may go away by itself, complications such as rheumatic fever, kidney disease, or throat abscess can occur. We usually prescribe antibiotics by mouth. Be sure to take the medicine until it's gone. If you stop early, the strep may come back. If you are vomiting, are severely ill, or can't remember to take pills, we can give you an antibiotic shot. Take acetaminophen or ibuprofen for pain and fever. Sip frequent clear liquids, or use popsicles or ice chips. Anesthetic sprays or lozenges may help. Make sure the air in the room is not too dry. Avoid using decongestants or antihistamines. Call the doctor if there is no improvement in three days, or if you have difficulty breathing, increasing throat pain, high fever, rash, or frequent vomiting. Penicillins The antibiotic you have received is a member of the penicillin family. This is a very useful class of antibiotics. The particular type of antibiotic chosen for you was determined by the nature of your problem. Penicillins are absorbed best when taken on an empty stomach, and should be taken either a half hour before or two hours after a meal. Some newer medicines of the penicillin class are better taken with food -- if this is the case, the pharmacist will label the medicine to alert you. Penicillins usually have no side effects. However, allergy to penicillins is common. If you have had an allergic reaction to any drug of the penicillin family, you should never take any other penicillin. Notify your doctor at once if you develop hives, itching, swelling, faintness, or shortness of breath. Less serious side effects can include nausea or diarrhea. Ibuprofen Ibuprofen is an excellent, safe drug for pain control. In addition, it has potent antiinflammatory effects which are beneficial, especially in the treatment of injuries, arthritis, or tendonitis. It's best to take ibuprofen with food. Persons with ulcer disease or allergy to aspirin should notify their physician of this before taking ibuprofen. Take the medication exactly as prescribed. Don't take additional doses unless instructed to do so by your doctor. If you develop wheezing, shortness of breath, hives, faintness, stomach pain, vomiting, or dark black stools, return for re-evaluation at once. FOLLOW-UP CARE: If you have been referred to a physician for follow-up care, call the physicians office for an appointment as you were instructed or within the next two days. If you experience worsening or a significant change in your symptoms, notify the physician immediately or return to the Emergency Department at any time for re-evaluation. Forms: Return to Work
[2018-07-05] MEDS ORDERED: PENICILLIN G BENZATHINE 1.2 MILLION UNIT/2 ML DISP.SYRIN IM ONE ×2 (01:06→01:20)
[2018-07-05 02:00] VITALS: BP 109/75
== END 2018-07-05 01:59 | disposition home or self-care (01) ==
LOC: ER 21:29
DX: J02.0 Streptococcal pharyngitis (principal); R50.9 Fever, unspecified; R51 Headache; R09.81 Nasal congestion; R09.82 Postnasal drip; R05 Cough; M79.10 Myalgia, unspecified site; R11.2 Nausea with vomiting, unspecified; J34.89 Other specified disorders of nose and nasal sinuses; R09.89 Other specified symptoms and signs involving the circulatory and respiratory systems; Z87.891 Personal history of nicotine dependence
CPT/HCPCS: 99283; 96372; 87086; 87880; 81025; 81001; J0561

== ENCOUNTER 2019-08-06 10:31 | Emergency (ER) | payer MEDICAID ==
[2019-08-06 10:50] VITALS: BP 120/72
--- NOTE | 2019-08-06 11:28 | ER Document Report ---
ED ENT - General Chief Complaint: Sore Throat Stated Complaint: SORE THROAT Time Seen by Provider: 08/06/19 11:06 Notes: CHIEF COMPLAINT: Sore throat for 3 days HPI: 28-year-old female presenting to the emergency department complaining of sore throat over the last 3 days. Had low-grade fever on day 1. Took no medications for symptoms, she is concerned about strep throat. Patient brought her daughter for evaluation as well although the daughter is asymptomatic ROS: See HPI - all other systems were reviewed and are otherwise negative Constitutional: no fever Eyes: no drainage, no blurred vision ENT: no runny nose, positive sore throat Cardiovascular: no chest pain Resp: no SOB, no cough GI: no vomiting, no diarrhea, no abdominal pain : no dysuria Integumentary: no rash Allergy: no hives Musculoskeletal: no extremity pain or swelling Neurological: no numbness/tingling, no weakness MEDICATIONS: I agree with the patient medications as charted by the RN. ALLERGIES: I agree with the allergies as charted by the RN. PAST MEDICAL HISTORY/PAST SURGICAL HISTORY: Reviewed and agree as charted by RN. SOCIAL HISTORY: Reviewed and agree as charted by RN. FAMILY HISTORY: No significant familial comorbid conditions directly related to patient complaint EXAM: Reviewed vital signs as charted by RN. CONSTITUTIONAL: Alert and oriented and responds appropriately to questions. Well-appearing; well-nourished HEAD: Normocephalic; atraumatic EYES: PERRL; Conjunctivae clear, sclerae non-icteric ENT: normal nose; no rhinorrhea; moist mucous membranes; mild pharyngeal erythema is noted, no uvula edema or deviation, no tonsillar hypertrophy, phonation normal NECK: Supple without meningismus; non-tender; no cervical lymphadenopathy, no masses CARD: RRR; no murmurs, no clicks, no rubs, no gallops; symmetric distal pulses RESP: Normal chest excursion without splinting or tachypnea; breath sounds clear and equal bilaterally; no wheezes, no rhonchi, no rales, pulse oximetry 98% on room air not hypoxic ABD/GI: Normal bowel sounds; non-distended; soft, non-tender, no rebound, no guarding; no palpable organomegaly or masses. BACK: The back appears normal and is non-tender to palpation, there is no CVA tenderness EXT: Normal ROM in all joints; no cyanosis, no effusions, no edema SKIN: Normal color for age and race; warm; dry; good turgor; no acute lesions noted NEURO: Moves all extremities equally; Motor and sensory function intact PSYCH: The patient's mood and manner are appropriate. Grooming and personal hygiene are appropriate. MDM: 28-year-old female with sore throat complaint for the last 3 days. Afebrile here. Rapid strep pending TRAVEL OUTSIDE OF THE [place] IN LAST 30 DAYS: No - Related Data Allergies/Adverse Reactions: No Known Allergies Allergy (Verified 07/05/18 04:16) Past Medical History - Social History Smoking Status: Unknown if Ever Smoked Frequency of alcohol use: None Drug Abuse: None Family History: Reviewed & Not Pertinent Renal/ Medical History: Denies: Hx Peritoneal Dialysis Past Surgical History: Reports: Hx Gynecologic Surgery - d/c x1 - Immunizations Hx Diphtheria, Pertussis, Tetanus Vaccination: No - unsure Physical Exam - Vital signs Vitals: Temp Pulse Resp BP Pulse Ox 99.0 F 102 H 19 120/72 99 08/06/19 10:43 08/06/19 10:43 08/06/19 10:43 08/06/19 10:43 08/06/19 10:43 Course - Re-evaluation Re-evalutation: 08/06/19 11:31 Rapid strep negative will discharge home with symptomatic treatment - Vital Signs Vital signs: Temp Pulse Resp BP Pulse Ox 99.0 F 102 H 19 120/72 99 08/06/19 10:43 08/06/19 10:43 08/06/19 10:43 08/06/19 10:43 08/06/19 10:43 Discharge - Discharge Clinical Impression: Acute viral pharyngitis Condition: Stable Disposition: HOME, SELF-CARE Additional Instructions: 1. Rapid strep test was negative 2. take Motrin/Tylenol consistently for pain and fever 3. hydrate well at home with fluids/juices 4. recheck with your PCP for further evaluation and treatment, call for appt. 5. return to the ED for any difficulty swallowing or worsening condition 6. warm salt water gargles for throat discomfort 3 times daily
== END 2019-08-06 11:41 | disposition home or self-care (01) ==
LOC: ER 10:31
DX: J02.9 Acute pharyngitis, unspecified (principal); B97.89 Other viral agents as the cause of diseases classified elsewhere; R50.9 Fever, unspecified
CPT/HCPCS: 36415; 87070; 87077; 87880; 99283